=== PATIENT | female | born 1975 | race Caucasian/White ===

== ENCOUNTER → 2021-12-27 | Outpatient (CLI) | payer OTHER, SELFPAY ==
--- NOTE | 2021-12-27 10:17 | BI_ITS ---
MAMMOGRAPHY - BILATERAL SCREENING REASON FOR EXAM: Female, 46 years old. Routine annual screening examination. PERTINENT HISTORY: Grandmother with breast cancer. TECHNIQUE: Digital bilateral breast amena (3D mammographic acquisition) in the CC and MLO projections. 2-D mediolateral oblique (MLO) and craniocaudad (CC) views of both breasts were obtained. CAD: Full Field Digital Mammography with Computer Added Detection was performed. COMPARISON: None. Baseline examination. FINDINGS: Breast Composition: There are scattered areas of fibroglandular density. There are no dominant masses or suspicious calcifications. No other significant abnormalities are identified. BI/SCRN MAMM (CAD)W/AMENA BILAT IMPRESSION: Negative screening mammogram. Yearly followup mammogram recommended. (A) ASSESSMENT CATEGORY: BIRADS Category 1: Negative. A letter regarding these results will be sent to the patient by the facility within 30 days. Approximately 10% of breast cancers are not detected by mammography. A normal mammogram should not delay biopsy of a clinically suspicious abnormality. [id number] Electronically Signed: Alex Houston MD at 11:15 EDT ,
== END | disposition home or self-care (01) ==
PROVIDERS: PCP Family Medicine; Visit Provider Student in an Organized Health Care Education/Training Program
DX: Z12.31 Encounter for screening mammogram for malignant neoplasm of breast (principal)
CPT/HCPCS: 77063; 77067

== ENCOUNTER → 2022-04-27 | Outpatient (CLI) | payer OTHER, SELFPAY ==
[2022-04-27 15:58] LABS: Anion Gap 9 (5-15); BUN 12 mg/dL (7-18); BUN/Creat Ratio 16.8 RATIO (10-20); Calcium,Total 9.5 mg/dL (8.5-10.1); Chloride 103 mmol/L (98-107); Creatinine, Serum 0.71 mg/dL (0.55-1.02); EST Glomerular Filtration Rate 94 mL/min (>60); Est Glom Filt Rate - Afr Amer 114 mL/min (>60); Glucose 80 mg/dL (74-106); Potassium 3.8 mmol/L (3.5-5.1); Sodium Level 137 mmol/L (136-145); Vitamin D,25 Hydroxy 20.5 ng/mL
== END | disposition home or self-care (01) ==
LOC: BFHLAB 13:39
PROVIDERS: PCP Family Medicine; Visit Provider Family Medicine
DX: I10 Essential (primary) hypertension (principal); E55.9 Vitamin D deficiency, unspecified
CPT/HCPCS: 36415; 80048; 82306

== ENCOUNTER → 2023-05-09 | Outpatient (CLI) | payer BC, SELFPAY ==
[2023-05-09 15:22] LABS: Absolute Lymphocyte Count 2.08 X10^3/uL (0.83-4.51); Absolute Neutrophil Count 4.5 X10^3/uL (2.0-7.7); Basophil# 0.07 X10^3/uL; Eosinophil# 0.12 X10^3/uL; Eosinophils% 1.6 % (0-5); Hematocrit 50.5 % (37-47); Hemoglobin 16.5 g/dL (12.0-15.0); Lymphocyte # 2.08 X10^3/ul (0.83-4.51); Lymphocyte % 28.3 % (19-41); Mean Corp Hgb Conc 32.7 g/dL (32-36); Mean Corpuscular Hgb 29.8 pg (27.0-32.0); Mean Corpuscular Volume 91.2 fL (81-99); Mean Platelet Vol. 11.3 fl (6.2-12.0); Monocyte# 0.54 X10^3/uL; Monocyte% 7.3 % (0-10); NRBC Flagged by Analyzer 0 % (0-5); Neutrophil # 4.52 X10^3/uL (2.7-7.7); Neutrophil % 61.5 % (47-70); Platelet Count 276 K/mm3 (150-450); RBC Distribution Width CV 12.1 % (11.6-14.6); RBC Distribution Width SD 40.6 fl (35.1-43.9); Red Blood Count 5.54 M/mm3 (4.2-5.4); White Blood Count 7.4 K/mm3 (4.4-11.0)
[2023-05-09 15:52] LABS: Vitamin D,25 Hydroxy 45.9 ng/mL
[2023-05-09 16:14] LABS: AST(SGOT) 23 U/L (15-37); Alanine Aminotransfer ALT/SGPT 45 U/L (13-56); Albumin, Serum 4.3 g/dL (3.2-5.0); Alkaline Phosphatase 67 U/L (45-117); Anion Gap 9 (5-15); BUN 12 mg/dL (7-18); BUN/Creat Ratio 12.7 RATIO (10-20); Calcium,Total 9.6 mg/dL (8.5-10.1); Chloride 103 mmol/L (98-107); Cholesterol 177 mg/dL (200); Creatinine, Serum 0.94 mg/dL (0.55-1.02); EST Glomerular Filtration Rate 68 mL/min (>60); Est Glom Filt Rate - Afr Amer 82 mL/min (>60); Globulin 4.4 g/dL (2.2-4.2); Glucose 81 mg/dL (74-106); High Density Lipoprotein 59 mg/dL; Potassium 3.9 mmol/L (3.5-5.1); Protein, Total 8.7 g/dL (6.4-8.2); Sodium Level 136 mmol/L (136-145); Triglycerides 75 mg/dL; Very Low Density Lipoprotein 15 mg/dL (5-40)
[2023-05-09 16:35] LABS: Microalbumin,Random Urine < 5.0 mg/L (NO RANGE EST.)
[2023-05-09 20:48] LABS: Hemoglobin A1c 5.1 % (3.8-5.6)
== END | disposition home or self-care (01) ==
LOC: MTLAB 12:38
PROVIDERS: PCP Family Medicine; Referring Provider Family Medicine; Visit Provider Family Medicine
DX: I10 Essential (primary) hypertension (principal); E55.9 Vitamin D deficiency, unspecified
CPT/HCPCS: 36415; 80053; 80061; 82043; 82306; 82570; 83036; 84443; 85025

== ENCOUNTER → 2023-12-23 | Outpatient (CLI) | payer BC, SELFPAY ==
[2023-12-23 12:53] LABS: Absolute Lymphocyte Count 1.77 X10^3/uL (0.83-4.51); Absolute Neutrophil Count 4.5 X10^3/uL (2.0-7.7); Basophil# 0.09 X10^3/uL; Basophil% 1.3 % (0-1); Eosinophils% 1.4 % (0-5); Hematocrit 46.8 % (37-47); Hemoglobin 15.4 g/dL (12.0-15.0); Lymphocyte # 1.77 X10^3/ul (0.83-4.51); Lymphocyte % 25.5 % (19-41); Mean Corp Hgb Conc 32.9 g/dL (32-36); Mean Corpuscular Hgb 29.9 pg (27.0-32.0); Mean Corpuscular Volume 90.9 fL (81-99); Mean Platelet Vol. 11.4 fl (6.2-12.0); Monocyte# 0.45 X10^3/uL; Monocyte% 6.5 % (0-10); NRBC Flagged by Analyzer 0 % (0-5); Neutrophil # 4.51 X10^3/uL (2.7-7.7); Neutrophil % 64.9 % (47-70); Platelet Count 284 K/mm3 (150-450); RBC Distribution Width CV 12.6 % (11.6-14.6); RBC Distribution Width SD 42.2 fl (35.1-43.9); Red Blood Count 5.15 M/mm3 (4.2-5.4)
[2023-12-23 13:41] LABS: Vitamin B12 647 pg/mL (211-911); Vitamin D,25 Hydroxy 28.4 ng/mL
[2023-12-23 15:02] LABS: AST(SGOT) 24 U/L (15-37); Alanine Aminotransfer ALT/SGPT 35 U/L (13-56); Albumin, Serum 3.9 g/dL (3.2-5.0); Alkaline Phosphatase 68 U/L (45-117); Anion Gap 7 (5-15); BUN 8 mg/dL (7-18); BUN/Creat Ratio 10.2 RATIO (10-20); Calcium,Total 9.1 mg/dL (8.5-10.1); Chloride 104 mmol/L (98-107); Cholesterol 173 mg/dL (200); Creatinine, Serum 0.79 mg/dL (0.55-1.02); EST Glomerular Filtration Rate 83 mL/min (>60); Est Glom Filt Rate - Afr Amer 101 mL/min (>60); Globulin 3.8 g/dL (2.2-4.2); Glucose 71 mg/dL (74-106); High Density Lipoprotein 60 mg/dL; Potassium 3.9 mmol/L (3.5-5.1); Protein, Total 7.7 g/dL (6.4-8.2); Sodium Level 138 mmol/L (136-145); T4 Free Direct 1.13 ng/dL (0.76-1.46); Triglycerides 60 mg/dL; Very Low Density Lipoprotein 12 mg/dL (5-40)
== END | disposition home or self-care (01) ==
LOC: BFHLAB 11:10
PROVIDERS: PCP Nurse Practitioner Family; Referring Provider Nurse Practitioner Family; Visit Provider Nurse Practitioner Family
DX: Z00.01 Encounter for general adult medical examination with abnormal findings (principal); I10 Essential (primary) hypertension; E55.9 Vitamin D deficiency, unspecified; Z83.49 Family history of other endocrine, nutritional and metabolic diseases; E53.8 Deficiency of other specified B group vitamins
CPT/HCPCS: 36415; 80053; 80061; 82306; 82607; 84439; 84443; 85025

== ENCOUNTER → 2024-06-29 | Outpatient (CLI) | payer BC, SELFPAY | END | disposition home or self-care (01) | LOC: BFHLAB 15:14 | PROVIDERS: PCP Nurse Practitioner Family; Referring Provider Nurse Practitioner Family; Visit Provider Nurse Practitioner Family | DX: N39.0 Urinary tract infection, site not specified (principal) | CPT/HCPCS: 87086; 87088; 87186 ==

== ENCOUNTER → 2024-08-20 | Outpatient (CLI) | payer BC, SELFPAY ==
[2024-08-20 18:34] LABS: Absolute Lymphocyte Count 1.71 X10^3/uL (0.83-4.51); Absolute Neutrophil Count 4.3 X10^3/uL (2.0-7.7); Basophil# 0.08 X10^3/uL; Basophil% 1.2 % (0-1); Eosinophil# 0.05 X10^3/uL; Eosinophils% 0.8 % (0-5); Hematocrit 44.2 % (37-47); Lymphocyte # 1.71 X10^3/ul (0.83-4.51); Lymphocyte % 26.1 % (19-41); Mean Corp Hgb Conc 33.9 g/dL (32-36); Mean Corpuscular Hgb 30.5 pg (27.0-32.0); Mean Corpuscular Volume 89.8 fL (81-99); Mean Platelet Vol. 11.1 fl (6.2-12.0); Monocyte# 0.41 X10^3/uL; Monocyte% 6.3 % (0-10); NRBC Flagged by Analyzer 0 % (0-5); Neutrophil # 4.27 X10^3/uL (2.7-7.7); Neutrophil % 65.3 % (47-70); Platelet Count 290 K/mm3 (150-450); RBC Distribution Width CV 12.7 % (11.6-14.6); RBC Distribution Width SD 41.8 fl (35.1-43.9); Red Blood Count 4.92 M/mm3 (4.2-5.4); White Blood Count 6.5 K/mm3 (4.4-11.0)
[2024-08-20 18:46] LABS: ALB/GLOB Ratio 1.2 RATIO (0.9-2.4); AST(SGOT) 21 U/L (15-37); Alanine Aminotransfer ALT/SGPT 30 U/L (13-56); Albumin, Serum 4.3 g/dL (3.2-5.0); Alkaline Phosphatase 58 U/L (45-117); Anion Gap 9 (5-15); BUN 13 mg/dL (7-18); BUN/Creat Ratio 15.2 RATIO (10-20); Calcium,Total 9.5 mg/dL (8.5-10.1); Chloride 103 mmol/L (98-107); Creatinine, Serum 0.86 mg/dL (0.55-1.02); EST Glomerular Filtration Rate 75 mL/min (>60); Est Glom Filt Rate - Afr Amer 91 mL/min (>60); Globulin 3.7 g/dL (2.2-4.2); Glucose 89 mg/dL (74-106); Lipase 44 U/L (13-75); Potassium 4.1 mmol/L (3.5-5.1); Sodium Level 136 mmol/L (136-145)
== END | disposition home or self-care (01) ==
LOC: BFHLAB 14:29
PROVIDERS: PCP Nurse Practitioner Family; Visit Provider Family Medicine
DX: R10.12 Left upper quadrant pain (principal)
CPT/HCPCS: 36415; 80053; 83690; 85025

== ENCOUNTER → 2025-01-05 | Outpatient (CLI) | payer BC, SELFPAY ==
[2025-01-05 14:35] LABS: AST(SGOT) 22 U/L (<=31); Alanine Aminotransfer ALT/SGPT 18 U/L (<=34); Albumin, Serum 4.2 g/dL (3.5-5.0); Alkaline Phosphatase 61 U/L (35-104); Bilirubin, Direct 0.21 mg/dL (0.00-0.30); Globulin 2.8 g/dL (2.2-4.2); Total Bilirubin 0.51 mg/dL (0.00-1.30); Vitamin D,25 Hydroxy 36.1 ng/mL (30-100)
--- OUTSIDE RECORDS SUMMARY | 2025-01-05 21:34 | XMS RPT_ITS | CCD ---
Author Organization [facility] Care Team Providers Care Renewals Representative Name Role Phone Ras Heller Unavailable Unavailable Ras Heller Unavailable Unavailable Hasmukh Rousseau Unavailable Unavailable Hasmukh Rousseau Primary Care Provider [phone] HASMUKH ROUSSEAU Primary Care Unavailable CHRISTIANO VERONICA Attending Unavail able JULIO SORIANO Attending Unavailable HASMUKH ROUSSEAU Primary Care Unavailable JULIO SORIANO Admitting Unavailable JULIO SORIANO Referring Unavailable HASMUKH ROUSSEAU Primary Care Unavailable Hasmukh Rousseau Primary Care Provider [phone] Dr. Hasmukh Rousseau Primary Care Provider [phone] Dr. Hasmukh Rousseau Referring Provider [phone] Yane Rahman Attending Provider [phone] Maranda Augustine DO Primary Care Provider GUI CHAPMAN Attending Unavailable MARANDA AUGUSTINE Primary Care Unavailable Chevy, Elvira Primary Care Unavailable Chevy, Elvira Attending Unavailable Chevy, Elvira Referring Unavailable Chevy, Elvira Primary Care Unavailable Chevy Elvira Attending Unavailable Chevy, Elvira Referring Unavailable Wilda Payan Attending Unavailable Chevy, Elvira Primary Care Unavailable [facility] Other Unavailable [phone] Wilda Payan MD Primary Care Provider [phone] HASMUKH ROUSSEAU Primary Care Unavailable WILDA PAYAN Referring Unavailable WILDA PAYAN Attending Unavailable ACOSTA DEAN Referring Unavailable ACOSTA DEAN Attending Unavailable WILDA PAYAN Primary Care Unavailable JOY PENG Attending Unavailable HASMUKH ROUSSEAU Primary Care Unavailable Medications Current Medications Medication Drug Class(es) Dates Sig (Normalized) Sig (Original) levonorgestrel 0.184663 mg/hr intrauterine system (4 sources) Progestin, Progestin-containi ng Intrauterine Device Start: 11-19-2021 End: 11-19-2021 Levonorgestrel 20.1 MCG/DAY IUD 1 Intra Uterine Device by Intrauterine route once. 11/19/2021 Active levonorgestreL ( MIRENA) 20 mcg/24 hours (6 yrs) 52 mg IUD 1 each by Intrauterine route once . 0 Active lisinopril 20 mg oral tablet (7 sources) Angiotensin Converting Enzyme Inhibitor Start: 02-08-2022 Lisinopril Active TA B PO February 08, 2022 12:00am Start: 08-04-2019 take 1 tablet by sepideh th once daily lisinopril (PRINIVIL,ZESTRIL) 20 MG tablet Take 20 mg by mouth daily . 0 08/04/2019 Active lisinopril 10 MG tablet Indications: Hypertension Take by mouth daily. 0 Active Semaglutide-Weight Management (Wegovy) 1.7 MG/0.75ML solution auto-injector (2 sources) Semaglutide-Weig ht Management (Wegovy) 1.7 MG/0.75ML solution auto-injector Inject 1.7 mg under the skin every 7 days. 0 Active Zepbound 12.5 MG/0.5ML Solution Auto-injector (1 source) Start: 4 inject 12.5 mg by intramuscular injection every week Zepbound 12.5 MG/0.5ML Solution Auto-injector Inject 12.5 mg intramuscularly once a week. 07/22/2023 Active Completed/Discontinued Medications Medication Drug Class(es) Dates Sig (Normalized) Sig (Original) cephalexin 500 mg oral capsule (2 sources) Cephalosporin Antibacterial Start: 06-26-2020 End: 07-03-2020 cephALEXin (KEFLEX) capsule 500 mg sodium chloride 0.154 meq/ml irrigation solution (1 source) Start: 06-26-2020 End: 06-26-2020 sodium chloride (NS) 0.9 % irrigation solution - ADS Override Pull Problems Active Problems Problem Classification Problem Date Documented Da te Episodic/Chronic Abdominal pain (3 sources) Left upper quadrant pain; Translations: [Left upper quadrant pain] Onset: 09-07-2024 Episodic Calculus of urinary tract (1 source) Kidney stone; Translations: [Calculus of kidney] 09-15-2024 Episodic Essential hypertension (9 sources) Hypertensive disorder; Translations: [Essential (primary) hypertension] Onset: 03-25-2014 03-25-2014 Chronic Open wounds of extremities (2 sources) Laceration of index finger; Translations: [Laceration of right index finger without damage to nail, foreign body presence unspecified, initial encounter] Episodic Other and unspecified benign neoplasm (2 sources) Lipoma of thigh; Translations: [Benign lipomatous neoplasm of skin and subcutaneous tissue of left leg] 02-15-2022 Episodic Other and unspecified benign neoplasm (3 sources) Benign lipomatous neoplasm of skin and subcutaneous tissue of left leg; Translations: [Lipoma of other specified sites] Episodic Other diseases of kidney and ureters (2 sources) Cyst of kidney; Translations: [Cyst of kidney, acquired] 09-15-2024 Episodic Other injuries and conditions due to external causes (1 source) Swallowed foreign body; Translations: [Ingestion of foreign body, initial encounter] Episodic Other nutritional; endocrine; and metabolic disorders (2 sources) Obesity; Translations: [Obesity, unspecified] 05-27-2023 Chronic Other nutritional; endocrine; and metabolic disorders (2 sources) Morbid obesity; Translations: [Morbid (severe) obesity due to excess calories] Onset: 04-19-2023 04-19-2023 Chronic Other nutritional; endocrine; and metabolic disorders (2 sources) Obesity, unspecified; Translations: [Obesity, unspecified] Onset: 05-27-2023 Chronic Residual codes; unclassified (3 sources) Sleep apnea; Translations: [Sleep apnea] Onset: 03-25-2014 03-25-2014 Chronic Urinary tract infections (1 source) Urinary tract infection, site not specified; Translations: [Urinary tract infection, site not specified] Onset: 07-30-2024 Episodic Past or Other Problems Problem Classification Problem Date Documented Da te Episodic/Chronic Mycoses (3 sources) Onychomycosis; Translations: [Onychomycosis] Onset: 03-25-2014 03-25-2014 Episodic Results Test Name Value Interpretation Reference Range Facility POCT URINALYSIS DIPSTICK AUT OMATED W/O SCOPon 09-15-2024 Amorphous sediment LM Ql (Urine sed) [facility] Appearance (U) clear [facility] Bacteria LM Ql (Urine sed) [facility] Bilirubin Ql (U) Negative [facility] Casts LM.LPF (Urine sed) [#/Area] [facility] Color (U) yellow [facility] Crystals LM Nom (Urine sed) [facility] Epithelial cells.squamous LM.HPF (Urine sed) [#/Area] [facility] Flow cytometry specialist review Chente (Unsp spec) [Interp] [facility] Glucose Auto test strip (U) [Mass/Vol] Negative mg/dL [facility] Interpretation and review of laboratory results Abnormal [facility] Ketones [Mass/Vol] Negative mg/dL [facility] Leukocyte esterase Qn (U) [facility] Leukocyte esterase Test strip Ql (U) Negative [facility] Nitrite Ql (U) Negative [facility] pH (U) 7 [pH] 5 - 7 [facility] Protein Ql (U) 30 mg/dL [facility] RBC LM.HPF (Urine sed) [#/Area] [facility] RBC Ql (U) Negative [facility] Specific gravity (U) [Rel density] 1.025 1.001 - 1.035 [facility] Transitional cells LM Ql (Urine sed) [facility] Urobilinogen Qn (U) 0.2 [facility] WBC LM.HPF (Urine sed) [#/Area] [facility] CT ABDOMEN PELVIS WITHOUT CO NTRASTon 09-09-2024 CT ABDOMEN PELVIS WITHOUT CONTRAST EXAMINATION: CT ABDOMEN AND PELVIS WITHOUT CONTRAST HISTORY: ORDERING SYSTEM PROVIDED HISTORY: Left upper quadrant pain, TECHNOLOGIST PROVIDED HISTORY: Illness/Other Reason for exam: Left upper quadrant pain Encounter Type: Initial Additional signs and symptoms: none ORDERING SYSTEM PROVIDED DIAGNOSIS CODES: R10.12 Left upper quadrant pain COMPARISON: None. TECHNIQUE: CT examination of the abdomen and pelvis without IV contrast. Coronal and sagittal reformations were performed. Dose reduction techniques were achieved by using automated exposure control and/or adjustment of mA and/or kV according to patient size and/or use of iterative reconstruction technique. FINDINGS: The visualized portions of the lung bases and heart are unremarkable. The liver is normal size. No focal lesion identified on this noncontrast study. Gallbladder is nondistended. No calcified stones. The spleen, pancreas, and adrenal glands are within normal limits. The kidneys demonstrate no hydronephrosis. A 4 mm calculus projects in the lower pole of the right kidney. Additional punctate calcification noted in the upper right kidney. There is homogeneous exophytic 2.5 cm lesion in the upper pole of the left kidney compatible with a cyst. No enlarged retroperitoneal lymphadenopathy. Aorta and IVC are normal caliber. The small bowel caliber is within normal limits. Appendix is noninflamed. The colon is nondistended. No evidence of free intraperitoneal air or fluid. The bladder is mostly decompressed. IUD in the central uterus with somewhat tilted positioning. No acute osseous abnormalities. IMPRESSION: No acute CT abnormality noted within the abdomen or pelvis. Nonobstructing right nephrolithiasis. Suspected left renal cyst. [facility] Workstation ID: [id number] Dictated by: FLOR POSEY on SatSep 10, 2024 8:13:46 AM EST Transcribed by: KATE STRAUSS on SatSep 10, 2024 8:23:51 AM EST Finalized by: FLOR POSEY on SatSep 10, 2024 8:49:52 AM EST Normal [facility] Comment on above: Order Comment: Pt/fa x Auth- [id number] Injury/Trauma or Illness?:Illness/Other How long have you had these symptoms (acute/chronic)?:Acute Reason for exam?:Left upper quadrant pain Type of Exam?:Initial Additional signs and symptoms?:none CBC W/Diff, Automatedon 07-24 Absolute Lymph 1.71 X10 3/uL Normal 0.83-4.51 [facility] Comment on above: Performed By: #### L 100.0100, L500.4050, L501.2450 #### [facility] [address] [place], [address] Absolute Neut 4.3 X10 3/uL Normal 2.0-7.7 [facility] Comment on above: Performed By: #### L 100.0100, L500.4050, L501.2450 #### [facility] [address] [place], [address] Basophils/100 WBC (Bld) 1.2 % High 0-1 [facility] Comment on above: Performed By: #### L 100.0100, L500.4050, L501.2450 #### [facility] [address] [place], [address] Eosinophils/100 WBC (Bld) 0.8 % Normal 0-5 [facility] Comment on above: Performed By: #### L 100.0100, L500.4050, L501.2450 #### [facility] [address] [place], [address] Erythrocyte distribution width (RBC) [Ratio] 12.7 % Normal 11.6-14.6 [facility] Comment on above: Performed By: #### L 100.0100, L500.4050, L501.2450 #### [facility] [address] [place], [address] Hematocrit (Bld) [Volume fraction] 44.2 % Normal 37-47 [facility] Comment on above: Performed By: #### L 100.0100, L500.4050, L501.2450 #### [facility] [address] [place], [address] Hemoglobin (Bld) [Mass/Vol] 15.0 g/dL Normal 12.0-15.0 [facility] Comment on above: Performed By: #### L 100.0100, L500.4050, L501.2450 #### [facility] [address] [place], [address] IG% 0.300 Normal 0.0-0.9 [facility] Comment on above: Result Comment: IG% - Immature Granulocytes (promyelocytes, myelocytes and metamyelocytes) > 1% indicates that a LEFT SHIFT is Present. Performed By: #### L 100.0100, L500.4050, L501.2450 #### [facility] [address] [place], [address] Lymphocytes/100 WBC (Bld) 26.1 % Normal 19-41 [facility] Comment on above: Performed By: #### L 100.0100, L500.4050, L501.2450 #### [facility] [address] [place], [address] MCH (RBC) [Entitic mass] 30.5 pg Normal 27.0-32.0 [facility] Comment on above: Performed By: #### L 100.0100, L500.4050, L501.2450 #### [facility] [address] [place], [address] MCHC (RBC) [Mass/Vol] 33.9 g/dL Normal 32-36 [facility] Comment on above: Performed By: #### L 100.0100, L500.4050, L501.2450 #### [facility] [address] [place], [address] MCV (RBC) [Entitic vol] 89.8 fL Normal 81-99 [facility] Comment on above: Performed By: #### L 100.0100, L500.4050, L501.2450 #### [facility] [address] [place], [address] Monocytes/100 WBC (Bld) 6.3 % Normal 0-10 [facility] Comment on above: Performed By: #### L 100.0100, L500.4050, L501.2450 #### [facility] [address] [place], [address] Neutrophils/100 WBC (Bld) 65.3 % Normal 47-70 [facility] Comment on above: Performed By: #### L 100.0100, L500.4050, L501.2450 #### [facility] [address] [place], [address] Nucleated RBC (Bld) [#/Vol] 0 10*3/uL Normal 0-5 [facility] Comment on above: Performed By: #### L 100.0100, L500.4050, L501.2450 #### [facility] [address] [place], [address] Platelet mean volume (Bld) [Entitic vol] 11.1 fL Normal 6.2-12.0 [facility] Comment on above: Performed By: #### L 100.0100, L500.4050, L501.2450 #### [facility] [address] [place], [address] Platelets (Bld) [#/Vol] 290 10*3/uL Normal 150-450 [facility] Comment on above: Performed By: #### L 100.0100, L500.4050, L501.2450 #### [facility] [address] [place], [address] RBC (Bld) [#/Vol] 4.92 10*6/uL Normal 4.2-5.4 [facility] Comment on above: Performed By: #### L 100.0100, L500.4050, L501.2450 #### [facility] [address] [place], [address] RDW SD 41.8 fl Normal 35.1-43.9 [facility] Comment on above: Performed By: #### L 100.0100, L500.4050, L501.2450 #### [facility] [address] [place], [address] WBC (Bld) [#/Vol] 6.5 10*3/uL Normal 4.4-11.0 [facility] Comment on above: Performed By: #### L 100.0100, L500.4050, L501.2450 #### [facility] [address] [place], [address] Comprehensive Metabolic Prof ilon 08-20-2024 Albumin [Mass/Vol] 4.3 g/dL Normal 3.2-5.0 [facility] Comment on above: Performed By: #### L 100.0100, L500.4050, L501.2450 #### [facility] [address] [place], [address] Albumin/Globulin [Mass ratio] 1.2 {ratio} Normal 0.9-2.4 [facility] Comment on above: Performed By: #### L 100.0100, L500.4050, L501.2450 #### [facility] [address] [place], [address] ALK P 58 U/L Normal 45-117 [facility] Comment on above: Performed By: #### L 100.0100, L500.4050, L501.2450 #### [facility] [address] [place], [address] ALT [Catalytic activity/Vol] 30 U/L Normal 13-56 [facility] Comment on above: Performed By: #### L 100.0100, L500.4050, L501.2450 #### [facility] [address] [place], [address] AST [Catalytic activity/Vol] 21 U/L Normal 15-37 [facility] Comment on above: Performed By: #### L 100.0100, L500.4050, L501.2450 #### [facility] [address] [place], [address] Bilirubin [Mass/Vol] 0.80 mg/dL Normal 0.20-1.00 [facility] Comment on above: Result Comment: For patients on eltrombopag therapy, use of Dimension [place] TBIL is not recommended. Performed By: #### L 100.0100, L500.4050, L501.2450 #### [facility] [address] [place], [address] BUN/CRE 15.2 RATIO Normal 10-20 [facility] Comment on above: Performed By: #### L 100.0100, L500.4050, L501.2450 #### [facility] [address] [place], [address] CA,Total 9.5 mg/dL Normal 8.5-10.1 [facility] Comment on above: Performed By: #### L 100.0100, L500.4050, L501.2450 #### [facility] [address] [place], [address] Chloride [Moles/Vol] 103 mmol/L Normal 98-107 [facility] Comment on above: Performed By: #### L 100.0100, L500.4050, L501.2450 #### [facility] [address] [place], [address] CO2 [Moles/Vol] 24.0 mmol/L Normal 21.0-32.0 [facility] Comment on above: Performed By: #### L 100.0100, L500.4050, L501.2450 #### [facility] [address] [place], [address] Creatinine [Mass/Vol] 0.86 mg/dL Normal 0.55-1.02 [facility] Comment on above: Result Comment: The validity of the calculated GFR GFRAA in patients over 70 years has not been determined. Clinical correlation is essential. Performed By: #### L 100.0100, L500.4050, L501.2450 #### [facility] [address], [address] EST GFR - AA 91 mL/min Normal >60 [facility] Comment on above: Result Comment: Afri can [place] GFR Calc Performed By: #### L 100.0100, L500.4050, L501.2450 #### [facility] [address] [place], [address] GAP 9 Normal 5-15 [facility] Comment on above: Performed By: #### L 100.0100, L500.4050, L501.2450 #### [facility] [address] [place], [address] GFR/1.73 sq M.predicted among non-blacks MDRD (S/P/Bld) [Vol rate/Area] 75 mL/min/{1.73_m2} Normal >60 [facility] Comment on above: Result Comment: Non- GFR Calc Performed By: #### L 100.0100, L500.4050, L501.2450 #### [facility] [address] [place], [address] Globulin (S) [Mass/Vol] 3.7 g/dL Normal 2.2-4.2 [facility] Comment on above: Performed By: #### L 100.0100, L500.4050, L501.2450 #### [facility] [address], [address] Glucose [Mass/Vol] 89 mg/dL Normal 74-106 [facility] Comment on above: Performed By: #### L 100.0100, L500.4050, L501.2450 #### [facility] [address] [place], [address] Potassium [Moles/Vol] 4.1 mmol/L Normal 3.5-5.1 [facility] Comment on above: Performed By: #### L 100.0100, L500.4050, L501.2450 #### [facility] [address] [place], [address] Sodium [Moles/Vol] 136 mmol/L Normal 136-145 [facility] Comment on above: Performed By: #### L 100.0100, L500.4050, L501.2450 #### [facility] [address] [place], [address] T PROT 8.0 g/dL Normal 6.4-8.2 [facility] Comment on above: Performed By: #### L 100.0100, L500.4050, L501.2450 #### [facility] [address] [place], [address] Urea nitrogen [Mass/Vol] 13 mg/dL Normal 7-18 [facility] Comment on above: Performed By: #### L 100.0100, L500.4050, L501.2450 #### [facility] [address] [place], [address] Lipaseon 08-20-2024 Lipase [Catalytic activity/Vol] 44 U/L Normal 13-75 [facility] Comment on above: Result Comment: Hugh mccullough note: LIPASE revised reference range effective 22. New Lipase methodology. Expected to produce lower values than the previous assay method. NEW Reference Range: 13 - 75 U/L Performed By: #### L 100.0100, L500.4050, L501.2450 #### [facility] [address] [place], [address] Urine Cultureon 07-01-2024 [facility] Presumptive E. coli Inez Count 25,000-50,000 Presumptive E. coli: REACTION Ampicillin Islt LEANDRA 4 Ampicillin+Sulbac Islt LEANDRA <=2 S Cefepime Islt LEANDRA <=0.12 S cefTRIAXone Islt LEANDRA <=0.25 S Ciprofloxacin Islt LEANDRA <=0.06 S B-Lactamase Extended Susc Islt NEG Gentamicin Islt LEANDRA <=1 S levoFLOXacin Islt LEANDRA <=0.12 S Meropenem Islt LEANDRA <=0.25 S Nitrofurantoin Islt LEANDRA <=16 S Pip+Tazo Islt LEANDRA <=4 S TMP SMX Islt LEANDRA <=20 S Normal [facility] Comment on above: Performed By: #### M 100.2200 #### [facility] [address] [place], [address] CBC W/Diff, Automatedon 06-0 3-4 Absolute Lymph 1.77 X10 3/uL Normal 0.83-4.51 [facility] Comment on above: Performed By: #### L 501.9520, L506.1000, L100.0100, L500.4050, L506.0400, L500.4100, L503.0105 #### [facility] [address] [place], [address] Absolute Neut 4.5 X10 3/uL Normal 2.0-7.7 [facility] Comment on above: Performed By: #### L 501.9520, L506.1000, L100.0100, L500.4050, L506.0400, L500.4100, L503.0105 #### [facility] [address] [place], [address] Basophils/100 WBC (Bld) 1.3 % High 0-1 [facility] Comment on above: Performed By: #### L 501.9520, L506.1000, L100.0100, L500.4050, L506.0400, L500.4100, L503.0105 #### [facility] [address] [place], [address] Eosinophils/100 WBC (Bld) 1.4 % Normal 0-5 [facility] Comment on above: Performed By: #### L 501.9520, L506.1000, L100.0100, L500.4050, L506.0400, L500.4100, L503.0105 #### [facility] [address] [place], [address] Erythrocyte distribution width (RBC) [Ratio] 12.6 % Normal 11.6-14.6 [facility] Comment on above: Performed By: #### L 501.9520, L506.1000, L100.0100, L500.4050, L506.0400, L500.4100, L503.0105 #### [facility] [address] [place], [address] Hematocrit (Bld) [Volume fraction] 46.8 % Normal 37-47 [facility] Comment on above: Performed By: #### L 501.9520, L506.1000, L100.0100, L500.4050, L506.0400, L500.4100, L503.0105 #### [facility] [address] [place], [address] Hemoglobin (Bld) [Mass/Vol] 15.4 g/dL High 12.0-15.0 [facility] Comment on above: Performed By: #### L 501.9520, L506.1000, L100.0100, L500.4050, L506.0400, L500.4100, L503.0105 #### [facility] [address] [place], [address] IG% 0.400 Normal 0.0-0.9 [facility] Comment on above: Result Comment: IG% - Immature Granulocytes (promyelocytes, myelocytes and metamyelocytes) > 1% indicates that a LEFT SHIFT is Present. Performed By: #### L 501.9520, L506.1000, L100.0100, L500.4050, L506.0400, L500.4100, L503.0105 #### [facility] [address] [place], [address] Lymphocytes/100 WBC (Bld) 25.5 % Normal 19-41 [facility] Comment on above: Performed By: #### L 501.9520, L506.1000, L100.0100, L500.4050, L506.0400, L500.4100, L503.0105 #### [facility] [address] [place], [address] MCH (RBC) [Entitic mass] 29.9 pg Normal 27.0-32.0 [facility] Comment on above: Performed By: #### L 501.9520, L506.1000, L100.0100, L500.4050, L506.0400, L500.4100, L503.0105 #### [facility] [address] [place], [address] MCHC (RBC) [Mass/Vol] 32.9 g/dL Normal 32-36 [facility] Comment on above: Performed By: #### L 501.9520, L506.1000, L100.0100, L500.4050, L506.0400, L500.4100, L503.0105 #### [facility] [address] [place], [address] MCV (RBC) [Entitic vol] 90.9 fL Normal 81-99 [facility] Comment on above: Performed By: #### L 501.9520, L506.1000, L100.0100, L500.4050, L506.0400, L500.4100, L503.0105 #### [facility] [address] [place], [address] Monocytes/100 WBC (Bld) 6.5 % Normal 0-10 [facility] Comment on above: Performed By: #### L 501.9520, L506.1000, L100.0100, L500.4050, L506.0400, L500.4100, L503.0105 #### [facility] [address] [place], [address] Neutrophils/100 WBC (Bld) 64.9 % Normal 47-70 [facility] Comment on above: Performed By: #### L 501.9520, L506.1000, L100.0100, L500.4050, L506.0400, L500.4100, L503.0105 #### [facility] [address] [place], [address] Nucleated RBC (Bld) [#/Vol] 0 10*3/uL Normal 0-5 [facility] Comment on above: Performed By: #### L 501.9520, L506.1000, L100.0100, L500.4050, L506.0400, L500.4100, L503.0105 #### [facility] [address] [place], [address] Platelet mean volume (Bld) [Entitic vol] 11.4 fL Normal 6.2-12.0 [facility] Comment on above: Performed By: #### L 501.9520, L506.1000, L100.0100, L500.4050, L506.0400, L500.4100, L503.0105 #### [facility] [address] [place], [address] Platelets (Bld) [#/Vol] 284 10*3/uL Normal 150-450 [facility] Comment on above: Performed By: #### L 501.9520, L506.1000, L100.0100, L500.4050, L506.0400, L500.4100, L503.0105 #### [facility] [address] [place], [address] RBC (Bld) [#/Vol] 5.15 10*6/uL Normal 4.2-5.4 [facility] Comment on above: Performed By: #### L 501.9520, L506.1000, L100.0100, L500.4050, L506.0400, L500.4100, L503.0105 #### [facility] [address] [place], [address] RDW SD 42.2 fl Normal 35.1-43.9 [facility] Comment on above: Performed By: #### L 501.9520, L506.1000, L100.0100, L500.4050, L506.0400, L500.4100, L503.0105 #### [facility] [address] [place], [address] WBC (Bld) [#/Vol] 7.0 10*3/uL Normal 4.4-11.0 [facility] Comment on above: Performed By: #### L 501.9520, L506.1000, L100.0100, L500.4050, L506.0400, L500.4100, L503.0105 #### [facility] [address] [place], [address] Comprehensive Metabolic Prof ilon 12-23-2023 Albumin [Mass/Vol] 3.9 g/dL Normal 3.2-5.0 [facility] Comment on above: Performed By: #### L 501.9520, L506.1000, L100.0100, L500.4050, L506.0400, L500.4100, L503.0105 #### [facility] [address] [place], [address] Albumin/Globulin [Mass ratio] 1.0 {ratio} Normal 0.9-2.4 [facility] Comment on above: Performed By: #### L 501.9520, L506.1000, L100.0100, L500.4050, L506.0400, L500.4100, L503.0105 #### [facility] [address] [place], [address] ALK P 68 U/L Normal 45-117 [facility] Comment on above: Performed By: #### L 501.9520, L506.1000, L100.0100, L500.4050, L506.0400, L500.4100, L503.0105 #### [facility] [address] [place], [address] ALT [Catalytic activity/Vol] 35 U/L Normal 13-56 [facility] Comment on above: Performed By: #### L 501.9520, L506.1000, L100.0100, L500.4050, L506.0400, L500.4100, L503.0105 #### [facility] [address] [place], [address] AST [Catalytic activity/Vol] 24 U/L Normal 15-37 [facility] Comment on above: Performed By: #### L 501.9520, L506.1000, L100.0100, L500.4050, L506.0400, L500.4100, L503.0105 #### [facility] [address] [place], [address] Bilirubin [Mass/Vol] 0.60 mg/dL Normal 0.20-1.00 [facility] Comment on above: Result Comment: For patients on eltrombopag therapy, use of Dimension [place] TBIL is not recommended. Performed By: #### L 501.9520, L506.1000, L100.0100, L500.4050, L506.0400, L500.4100, L503.0105 #### [facility] [address] [place], [address] BUN/CRE 10.2 RATIO Normal 10-20 [facility] Comment on above: Performed By: #### L 501.9520, L506.1000, L100.0100, L500.4050, L506.0400, L500.4100, L503.0105 #### [facility] [address] [place], [address] CA,Total 9.1 mg/dL Normal 8.5-10.1 [facility] Comment on above: Performed By: #### L 501.9520, L506.1000, L100.0100, L500.4050, L506.0400, L500.4100, L503.0105 #### [facility] [address] [place], [address] Chloride [Moles/Vol] 104 mmol/L Normal 98-107 [facility] Comment on above: Performed By: #### L 501.9520, L506.1000, L100.0100, L500.4050, L506.0400, L500.4100, L503.0105 #### [facility] [address] [place], [address] CO2 [Moles/Vol] 27.0 mmol/L Normal 21.0-32.0 [facility] Comment on above: Performed By: #### L 501.9520, L506.1000, L100.0100, L500.4050, L506.0400, L500.4100, L503.0105 #### [facility] [address] [place], [address] Creatinine [Mass/Vol] 0.79 mg/dL Normal 0.55-1.02 [facility] Comment on above: Result Comment: The validity of the calculated GFR GFRAA in patients over 70 years has not been determined. Clinical correlation is essential. Performed By: #### L 501.9520, L506.1000, L100.0100, L500.4050, L506.0400, L500.4100, L503.0105 #### [facility] [address] [place], [address] EST GFR - AA 101 mL/min Normal >60 [facility] Comment on above: Result Comment: Afri can Guamanian GFR Calc Performed By: #### L 501.9520, L506.1000, L100.0100, L500.4050, L506.0400, L500.4100, L503.0105 #### [facility] [address] [place], [address] GAP 7 Normal 5-15 [facility] Comment on above: Performed By: #### L 501.9520, L506.1000, L100.0100, L500.4050, L506.0400, L500.4100, L503.0105 #### [facility] [address] [place], [address] GFR/1.73 sq M.predicted among non-blacks MDRD (S/P/Bld) [Vol rate/Area] 83 mL/min/{1.73_m2} Normal >60 [facility] Comment on above: Result Comment: Non- GFR Calc Performed By: #### L 501.9520, L506.1000, L100.0100, L500.4050, L506.0400, L500.4100, L503.0105 #### [facility] [address] [place], [address] Globulin (S) [Mass/Vol] 3.8 g/dL Normal 2.2-4.2 [facility] Comment on above: Performed By: #### L 501.9520, L506.1000, L100.0100, L500.4050, L506.0400, L500.4100, L503.0105 #### [facility] [address] [place], [address] Glucose [Mass/Vol] 71 mg/dL Low 74-106 [facility] Comment on above: Performed By: #### L 501.9520, L506.1000, L100.0100, L500.4050, L506.0400, L500.4100, L503.0105 #### [facility] [address] [place], [address] Potassium [Moles/Vol] 3.9 mmol/L Normal 3.5-5.1 [facility] Comment on above: Performed By: #### L 501.9520, L506.1000, L100.0100, L500.4050, L506.0400, L500.4100, L503.0105 #### [facility] [address] [place], [address] Sodium [Moles/Vol] 138 mmol/L Normal 136-145 [facility] Comment on above: Performed By: #### L 501.9520, L506.1000, L100.0100, L500.4050, L506.0400, L500.4100, L503.0105 #### [facility] [address] [place], [address] T PROT 7.7 g/dL Normal 6.4-8.2 [facility] Comment on above: Performed By: #### L 501.9520, L506.1000, L100.0100, L500.4050, L506.0400, L500.4100, L503.0105 #### [facility] [address] [place], [address] Urea nitrogen [Mass/Vol] 8 mg/dL Normal 7-18 [facility] Comment on above: Performed By: #### L 501.9520, L506.1000, L100.0100, L500.4050, L506.0400, L500.4100, L503.0105 #### [facility] [address] [place], [address] Lipid Profileon 12-23-2023 Cholesterol [Mass/Vol] 173 mg/dL Normal 200 [facility] Comment on above: Result Comment: <200 mg/dL Desirable 200-240 mg/dL Borderline >240 mg/dL High Risk Performed By: #### L 501.9520, L506.1000, L100.0100, L500.4050, L506.0400, L500.4100, L503.0105 #### [facility] [address] [place], [address] Cholesterol in HDL [Mass/Vol] 60 mg/dL Normal [facility] Comment on above: Result Comment: The drugs N-Acetylcysteine and Metamizole may falsely depress this assay. Reference Range HDL <40 mg/dL Low HDL Cholesterol HDL >or= 60 mg/dL High HDL Cholesterol Performed By: #### L 501.9520, L506.1000, L100.0100, L500.4050, L506.0400, L500.4100, L503.0105 #### [facility] [address] [place], [address] Cholesterol in LDL [Mass/Vol] 101 mg/dL Normal 0-130 [facility] Comment on above: Performed By: #### L 501.9520, L506.1000, L100.0100, L500.4050, L506.0400, L500.4100, L503.0105 #### [facility] [address] [place], [place], [address] ([address] Cholesterol in VLDL [Mass/Vol] 12 mg/dL Normal 5-40 [facility] Comment on above: Performed By: #### L 501.9520, L506.1000, L100.0100, L500.4050, L506.0400, L500.4100, L503.0105 #### [facility] [address] [place], [place], [id number] ([address] Triglyceride [Mass/Vol] 60 mg/dL Normal [facility] Comment on above: Result Comment: The drugs N-Acetylcysteine and Metamizole may falsely depress this assay. Serum Triglycerides Reference Interval Normal <150 mg/dL Borderline high 150 - 199 mg/dL High 200 - 499 mg/dL Very High > or = 500 mg/dL Performed By: #### L 501.9520, L506.1000, L100.0100, L500.4050, L506.0400, L500.4100, L503.0105 #### [facility] [address] [place], [address] T4 Free Directon 12-23-2023 T4 FREE DIRECT 1.13 ng/dL Normal 0.76-1.46 [facility] Comment on above: Performed By: #### L 100.0100, L500.4050, L501.2450 #### [facility] [address] [place], [address] Thyroid Stim Hormone (TSH)on 12-23-2023 TSH 1.00 uIU/mL Normal 0.358-3.74 [facility] Comment on above: Performed By: #### L 501.9520, L506.1000, L100.0100, L500.4050, L506.0400, L500.4100, L503.0105 #### [facility] [address] [place], [address] Vitamin B12on 12-23-2023 Cobalamin (Vitamin B12) [Mass/Vol] 647 pg/mL Normal 211-911 [facility] Comment on above: Performed By: #### L 501.9520, L506.1000, L100.0100, L500.4050, L506.0400, L500.4100, L503.0105 #### [facility] [address] [place], [address] Vitamin D,25 Hydroxyon 12-22 Vitamin D 25-OH 28.4 ng/mL Normal [facility] Comment on above: Result Comment: Doris min D 25(OH) Status Range Deficiency <20 ng/mL (50nmol/L) Insufficiency 20 - 30 ng/mL (50 - 75 nmol/L) Sufficiency 30 - 100 ng/mL (75 - 250 nmol/L) Toxicity >100 ng/mL (>250 nmol/L) Performed By: #### L 501.9520, L506.1000, L100.0100, L500.4050, L506.0400, L500.4100, L503.0105 #### [facility] [address] [place], [id number] Office Visiton 05-27-2023 Follow-up visit [id number] Millie Gomez 1975 F Date Provider Department Center 05/27/2023 [facility] None Family History Problem Relation Age of Onset Obesity Father Diabetes Father Hypertension Father Heart disease Father Hypertension Sister Family Status - Relation Status Age at Father Sister Alive Level of Service:92688 [facility] OFFICE/OUTPATIENT NEW MODERATE MDM 45-59 MINUTES Reason for Visit and Comments: Weight Loss [055319] - New nsurg Normal [facility] Progress Noteon 05-27-2023 Progress Note [facility] NON-SURGICAL WEIGHT LOSS MANAGEMENT PROGRAM ROOMING NOTE - INITIAL CONSULTATION Patient: Millie Gomez Date of : 1975 Service Date: 05/27/2023 Patient is here today to discuss non-surgical weight loss management. This patient is alone for the evaluation today Weight Metrics: Non-Surgical Initial Eval Consult Date: 05/27/23 Initial Height: 5' 6 (167.6 cm) Initial Weight: 220 lb 9.6 oz (100 kg) [place] Body Weight: 137 lb (62.1 kg) Initial BMI: 35.60 Initial Body Fat %: 42.72 EBW: 83 lb (Flow Sheet: Surgical Wt Loss Management: Baseline) Diabetes Do you currently have diabetes? No Are you currently prescribed insulin? No Are you currently prescribed an oral medication for diabetes? No GERD (Gastroesophageal Reflux Disease) Do you currently have GERD? No Do you get heartburn type symptoms more than twice per week? No Are you currently on a medication for GERD? (not TUMS) (examples: Prilosec/omeprazole, Zantac/ranitidine, etc.) No Hyperlipidemia (high cholesterol) Do you currently have a diagnosis of high cholesterol? No Are you currently prescribed a medication for high cholesterol? (examples Lipitor/Atorvastatin , Pravastatin, Zetia, Tricor, etc.) No Have you been diagnosed with high cholesterol but chosen not to take medication? No Hypertension (high blood pressure) Do you currently have a diagnosis of Hypertension? Yes Are you currently on a medication for Hypertension? Yes Have you been diagnosed with Hypertension but have chosen not to take the medication? No Sleep Apnea Do you currently have Sleep Apnea? No Are you on a device (CPAP, BiPAP, etc) for Sleep Apnea? No Have you been diagnosed with Sleep Apnea but cannot tolerate or have chosen not to treat? No Comorbids Summary (flow sheet comorbids) Falls Risk Assessment Patient does take medications which affect BP or mental status Patient does not have newly prescribed or changed dosage of medications within past 30 days which affect BP or mental status Patient has not fallen in the past 2 months Patient does notdemonstrate unsteady gait Patient uses the following ambulatory assistive devices: none Patient states the presence of the following traits which increases risk of fall: none Patient is not on home O2 Completed by: Caitie Santoro MA [facility] Absolute lymphocyte countOrd ered By: Maranda Augustine on 05-09-2023 Lymphocytes Auto (Unsp spec) [#/Vol] 2.08 10*3/uL 0.83-4.51 [facility] Basophil percentageOrdered B y: Maranda Augustine on 05-09-2023 Basophils/100 WBC (Bld) 1.0 % 0-1 [facility] Bilirubin [Mass/Vol] 0.60 mg/dL 0.20-1.00 [facility] Comment on above: For patients on eltr ombopag therapy, use of Dimension [place] TBIL is not recommended. Chloride [Moles/Vol] 103 mmol/L 98-107 [facility] Cholesterol [Mass/Vol] 177 mg/dL <200 [facility] Comment on above: <200 mg/dL Desirable 200-240 mg/dL Borderline >240 mg/dL High Risk Eosinophils/100 WBC (Bld) 1.6 % 0-5 [facility] Glucose [Mass/Vol] 81 mg/dL 74-106 [facility] Neutrophils (Bld) [#/Vol] 4.5 10*3/uL 2.0-7.7 [facility] Neutrophils/100 WBC (Bld) 61.5 % 47-70 [facility] Potassium [Moles/Vol] 3.9 mmol/L 3.5-5.1 [facility] Protein [Mass/Vol] 8.7 g/dL 6.4-8.2 [facility] Sodium [Moles/Vol] 136 mmol/L 136-145 [facility] Triglyceride [Mass/Vol] 75 mg/dL <199 [facility] Comment on above: The drugs N-Acetylcy steine and Metamizole may falsely depress this assay.Serum Triglycerides Reference Interval Normal <150 mg/dL Borderline high 150 - 199 mg/dL High 200 - 499 mg/dL Very High > or = 500 mg/dL WBC (Bld) [#/Vol] 7.4 10*3/uL 4.4-11.0 [facility] Blood erythrocytes count (nu mber/volume)Ordered By: Maranda Augustine on 05-09-2023 RBC (Bld) [#/Vol] 5.54 10*6/uL 4.2-5.4 [facility] Blood hemoglobin measurement (mass/volume)Ordered By: Maranda Augustine on 05-09-2023 Hemoglobin (Bld) [Mass/Vol] 16.5 g/dL 12.0-15.0 [facility] Blood lymphocytes/100 leukoc ytesOrdered By: Maranda Augustine on 05-09-2023 Lymphocytes/100 WBC (Bld) 28.3 % 19-41 [facility] Blood monocytes/100 leukocyt esOrdered By: Maranda Augustine on 05-09-2023 Monocytes/100 WBC (Bld) 7.3 % 0-10 [facility] Blood platelet mean volumeOr dered By: Maranda Augustine on 05-09-2023 Platelet mean volume (Bld) [Entitic vol] 11.3 fL 6.2-12.0 [facility] Determination of erythrocyte mean corpuscular volume (MCV)Ordered By: Maranda Augustine on 05-09-2023 MCV (RBC) [Entitic vol] 91.2 fL 81-99 [facility] Hematocrit Auto (Bld) [Volum e fraction]Ordered By: Maranda Augustine on 05-09-2023 Hematocrit (Bld) [Volume fraction] 50.5 % 37-47 [facility] - Chemistry and C hemistry - challengeOrdered By: Maranda Augustine on 05-09-2023 ALP [Catalytic activity/Vol] 67 U/L 45-117 [facility] ALT [Catalytic activity/Vol] 45 U/L 13-56 [facility] CO2 [Moles/Vol] 24.0 mmol/L 21.0-32.0 [facility] Globulin (S) [Mass/Vol] 4.4 g/dL 2.2-4.2 [facility] Urea nitrogen/Creatinine [Mass ratio] 12.7 mg/mg 10-20 [facility] - Hematology and Cell countsOrdered By: Maranda Augustine on 05-09-2023 Erythrocyte distribution width (RBC) [Entitic vol] 40.6 fL 35.1-43.9 [facility] Erythrocyte distribution width (RBC) [Ratio] 12.1 % 11.6-14.6 [facility] Immature granulocytes/100 WBC (Bld) 0.300 % 0.0-0.9 [facility] Comment on above: IG% - Immature Granu locytes (promyelocytes, myelocytes and metamyelocytes) > 1% indicates that a LEFT SHIFT is Present. MCH (RBC) [Entitic mass] 29.8 pg 27.0-32.0 [facility] Nucleated RBC/100 WBC (Bld) [Ratio] 0 % 0-5 [facility] MCHC Auto (RBC) [Mass/Vol]Or dered By: Maranda Augustine on 05-09-2023 MCHC (RBC) [Mass/Vol] 32.7 g/dL 32-36 [facility] No Panel InformationOrdered By: Maranda Augustine on 05-09-2023 Estimated GFR (MDRD) Amer 82 mL/min >60 [facility] Comment on above: GFR Calc Estimated GFR (MDRD) Non-Af Amer 68 mL/min >60 [facility] Comment on above: Non- GFR Calc Thyroid Stimulating Hormone (TSH) 0.70 uIU/mL 0.358-3.74 [facility] Urine Microalbumin/Creatinine Ratio TNP [facility] Comment on above: Test not performed Vitamin D 25-Hydroxy 45.9 ng/mL [facility] Comment on above: Vitamin D 25(OH) Sta tus Range Deficiency <20 ng/mL (50nmol/L) Insufficiency 20 - 30 ng/mL (50 - 75 nmol/L) Sufficiency 30 - 100 ng/mL (75 - 250 nmol/L) Toxicity >100 ng/mL (>250 nmol/L) Platelets bldOrdered By: Daya Augustine on 05-09-2023 Platelets (Bld) [#/Vol] 276 10*3/uL 150-450 [facility] Serum or plasma albumin antonino urement (mass/volume)Ordered By: Maranda Augustine on 05-09-2023 Albumin [Mass/Vol] 4.3 g/dL 3.2-5.0 [facility] Serum or plasma albumin/glob ulin mass ratioOrdered By: Maranda Augustine on 05-09-2023 Albumin/Globulin [Mass ratio] 1.0 {ratio} 0.9-2.4 [facility] Serum or plasma calcium antonino urement (mass/volume)Ordered By: Maranda Augustine on 05-09-2023 Calcium [Mass/Vol] 9.6 mg/dL 8.5-10.1 [facility] Serum or plasma cholesterol in HDL measurement (mass/volume)Ordered By: Maranda Augustine on 05-09-2023 Cholesterol in HDL [Mass/Vol] 59 mg/dL >40 [facility] Comment on above: The drugs N-Acetylcy steine and Metamizole may falsely depress this assay. Reference Range HDL <40 mg/dL Low HDL Cholesterol HDL >or= 60 mg/dL High HDL Cholesterol Serum or plasma cholesterol in VLDL measurement (mass/volume)Ordered By: Maranda Augustine on 05-09-2023 Cholesterol in VLDL [Mass/Vol] 15 mg/dL 5-40 [facility] Serum or plasma creatinine m easurement (mass/volume)Ordered By: Maranda Augustine on 05-09-2023 Creatinine [Mass/Vol] 0.94 mg/dL 0.55-1.02 [facility] Comment on above: The validity of the calculated GFR & GFRAA in patients over 70 years has not been determined. Clinical correlation is essential. Serum or plasma low density lipoprotein (LDL) cholesterol measurement (mass/volume)Ordered By: Maranda Augustine on 05-09-2023 Cholesterol in LDL [Mass/Vol] 103 mg/dL 0-130 [facility] Serum or plasma urea nitroge n measurement (mass/volume)Ordered By: Maranda Augustine on 05-09-2023 Urea nitrogen [Mass/Vol] 12 mg/dL 7-18 [facility] Thin prep Papanicolaou smear with manual screeningOrdered By: Maranda Augustine on 05-09-2023 Thin prep Papanicolaou smear with manual screening 23 U/L 15-37 [facility] Thin prep Papanicolaou smear with manual screening 9 5-15 [facility] Thin prep Papanicolaou smear with manual screening < 5.0 mg/L NO RANGE EST. [facility] Urine creatinine measurement (mass/volume)Ordered By: Maranda Augustine on 05-09-2023 Creatinine (U) [Mass/Vol] 28.60 mg/dL NO RANGE EST. [facility] Whole blood hemoglobin A1c/t otal hemoglobin ratio (mass fraction)Ordered By: Maranda Augustine on 05-09-2023 HbA1c (Bld) [Mass fraction] 5.1 % 3.8-5.6 [facility] Comment on above: Normal < 5.7 % Predi abetic 5.7 - 6.4 % Diabetic >or= 6.5 % Please note range changes. Basophil percentageon 2021 Chloride [Moles/Vol] 103 mmol/L 98-107 [facility] Work Phone: Glucose [Mass/Vol] 80 mg/dL 74-106 [facility] Work Phone: Potassium [Moles/Vol] 3.8 mmol/L 3.5-5.1 [facility] Work Phone: Sodium [Moles/Vol] 137 mmol/L 136-145 [facility] Work Phone: Laboratory - Chemistry and C hemistry - challengeon 04-27-2022 CO2 [Moles/Vol] 25.0 mmol/L 21.0-32.0 [facility] Work Phone: Urea nitrogen/Creatinine [Mass ratio] 16.8 mg/mg - [facility] Work Phone: No Panel Informationon 04-27 Estimated GFR (MDRD) Amer 114 mL/min >60 [facility] Work Phone: Comment on above: GFR Calc Estimated GFR (MDRD) Non-Af Amer 94 mL/min >60 [facility] Work Phone: Comment on above: Non- GFR Calc Vitamin D 25-Hydroxy 20.5 ng/mL [facility] Work Phone: Comment on above: Vitamin D 25(OH) Sta tus Range Deficiency <20 ng/mL (50nmol/L) Insufficiency 20 - 30 ng/mL (50 - 75 nmol/L) Sufficiency 30 - 100 ng/mL (75 - 250 nmol/L) Toxicity >100 ng/mL (>250 nmol/L) Serum or plasma calcium antonino urement (mass/volume)on 04-27-2022 Calcium [Mass/Vol] 9.5 mg/dL 8.5-10.1 [facility] Work Phone: Serum or plasma creatinine m easurement (mass/volume)on 04-27-2022 Creatinine [Mass/Vol] 0.71 mg/dL 0.55-1.02 [facility] Work Phone: Comment on above: The validity of the calculated GFR & GFRAA in patients over 70 years has not been determined. Clinical correlation is essential. Serum or plasma urea nitroge n measurement (mass/volume)on 04-27-2022 Urea nitrogen [Mass/Vol] 12 mg/dL 7-18 [facility] Work Phone: Thin prep Papanicolaou smear with manual screeningon 04-27-2022 Thin prep Papanicolaou smear with manual screening 9 5-15 [facility] Work Phone: XR Finger(s) Right 2+ Viewso n 06-26-2020 No acute osseous abnormality. Soft tissue trauma. [facility] Workstation ID: [id number] [facility] EXAMINATION: XR FINGER(S) RIGHT 2+ VIEWS 06/26/2020 6:43 pm HISTORY: ORDERING SYSTEM PROVIDED HISTORY: Right index finger injury, TECHNOLOGIST PROVIDED HISTORY: Injury/Trauma Reason for exam: Laceration anterior and posterior right index finger. Cancer History: u Surgery, RadiationHistory: u Encounter Type: Initial Mechanism of injury: TRauma ORDERING SYSTEM PROVIDED DIAGNOSIS CODES: S61.210A Laceration of right index finger without foreign body without damage to nail, initial encounter COMPARISON: None. FINDINGS: There is a bandage surrounding the index finger. There is soft tissue swelling volar aspect. No radiopaque foreign body. No fracture or dislocation is seen. [facility] Interface, Rad In [employer] Speechq - 06/26/2020 8:43 PM EST EXAMINATION: XR FINGER(S) RIGHT 2+ VIEWS 06/26/2020 6:43 pm HISTORY: ORDERING SYSTEM PROVIDED HISTORY: Right index finger injury, TECHNOLOGIST PROVIDED HISTORY: Injury/Trauma Reason for exam: Laceration anterior and posterior right index finger. Cancer History: u Surgery, RadiationHistory: u Encounter Type: Initial Mechanism of injury: TRauma ORDERING SYSTEM PROVIDED DIAGNOSIS CODES: S61.210A Laceration of right index finger without foreign body without damage to nail, initial encounter COMPARISON: None. FINDINGS: There is a bandage surrounding the index finger. There is soft tissue swelling volar aspect. No radiopaque foreign body. No fracture or dislocation is seen. IMPRESSION: No acute osseous abnormality. Soft tissue trauma. [place] Workstation ID: [id number] [facility] XR CHEST AP/PA AND LATon XR CHEST AP/PA AND LAT EXAMINATION: XR CHEST AP/PA AND LAT 08/07/2019 12:20 PM HISTORY: ORDERING SYSTEM PROVIDED HISTORY: ingestion of dental bridge, TECHNOLOGIST PROVIDED HISTORY: Illness/Other Reason for exam: swalloed part of tooth Cancer History: u Surgery, RadiationHistory: u Encounter Type: Initial Additional signs and symptoms: none ORDERING SYSTEM PROVIDED DIAGNOSIS CODES: T18.9XXA Ingestion of foreign body, initial encounter FINDINGS: Frontal and lateral views of the chest demonstrate clear lungs. The heart size is within normal limits. There are no pleural effusions. No acute bony abnormality is identified. No radiopaque foreign body is identified in the chest or visualized upper abdomen. IMPRESSION: No definite radiopaque foreign body is identified within the chest or visualized upper abdomen. [place]/[facility] Workstation ID: [id number] Dictated by: ALAN RUSSELL on SatAug 07, 2019 12:41:13 PM EST Transcribed by: KATE STRAUSS on SatAug 07, 2019 1:21:38 PM EST Finalized by: ALAN RUSSELL on SatAug 07, 2019 1:29:11 PM EST Normal [facility] Comment on above: Order Comment: Injur y/Trauma or Illness?:Illness/Other swa lled part of tooth How long have you had these symptoms (acute/chronic)?:Acute Reason for exam?:swalloed part of tooth History of cancer?:u Surgeries, chemotherapy, or radiation?:u Type of Exam?:Initial Additional signs and symptoms?:none No definite radiopaque foreign body is identified within the chest or visualized upper abdomen. [employer] Workstation ID: [id number] [facility] EXAMINATION: XR CHEST AP/PA AND LAT 08/07/2019 12:20 PM HISTORY: ORDERING SYSTEM PROVIDED HISTORY: ingestion of dental bridge, TECHNOLOGIST PROVIDED HISTORY: Illness/Other Reason for exam: swalloed part of tooth Cancer History: u Surgery, RadiationHistory: u Encounter Type: Initial Additional signs and symptoms: none ORDERING SYSTEM PROVIDED DIAGNOSIS CODES: T18.9XXA Ingestion of foreign body, initial encounter FINDINGS: Frontal and lateral views of the chest demonstrate clear lungs. The heart size is within normal limits. There are no pleural effusions. No acute bony abnormality is identified. No radiopaque foreign body is identified in the chest or visualized upper abdomen. [facility] - 08/07/2019 1:31 PM EST EXAMINATION: XR CHEST AP/PA AND LAT 08/07/2019 12:20 PM HISTORY: ORDERING SYSTEM PROVIDED HISTORY: ingestion of dental bridge, TECHNOLOGIST PROVIDED HISTORY: Illness/Other Reason for exam: swalloed part of tooth Cancer History: u Surgery, RadiationHistory: u Encounter Type: Initial Additional signs and symptoms: none ORDERING SYSTEM PROVIDED DIAGNOSIS CODES: T18.9XXA Ingestion of foreign body, initial encounter FINDINGS: Frontal and lateral views of the chest demonstrate clear lungs. The heart size is within normal limits. There are no pleural effusions. No acute bony abnormality is identified. No radiopaque foreign body is identified in the chest or visualized upper abdomen. IMPRESSION: No definite radiopaque foreign body is identified within the chest or visualized upper abdomen. [employer] Workstation ID: [id number] [facility] Vital Signs Date Time Vital Sign Value Performing Clinician Facility 09-15-2024 08:26-0500 Body height 167.6 cm Acosta Dean MD Work Phone: [facility] 09-15-2024 08:26-0500 Body mass index (BMI) [Ratio] 38.09 kg/m2 Acosta Dean MD Work Phone: [facility] 09-15-2024 08:26-0500 Body weight 107.05 kg Acosta Dean MD Work Phone: [facility] 09-15-2024 08:26-0500 Respiratory rate 16 /min Acosta Dean MD Work Phone: [facility] 05-27-2023 13:46-0500 Body height 167.6 cm Gui Chapman MD Work Phone: [facility] 05-27-2023 13:46-0500 Body mass index (BMI) [Ratio] 35.61 kg/m2 Gui Chapman MD Work Phone: [facility] 05-27-2023 13:46-0500 Body weight 100.06 kg Gui Chapman MD Work Phone: [facility] 05-27-2023 13:46-0500 Diastolic blood pressure 90 mm[Hg] Gui Chapman MD Work Phone: [facility] 05-27-2023 13:46-0500 Heart rate 80 /min Gui Chapman MD Work Phone: [facility] 05-27-2023 13:46-0500 Systolic blood pressure 135 mm[Hg] Gui Chapman MD Work Phone: [facility] 02-08-2022 09:55-0400 Body height 170.[address] Hasmukh Rousseau Work Phone: [facility] Work Phone: 02-08-2022 09:55-0400 Body mass index (BMI) [Ratio] 40.7 kg/m2 Dr. Hasmukh Rousseau Work Phone: [facility] Work Phone: 02-08-2022 09:55-0400 Body weight 117.[address] Hasmukh Rousseau Work Phone: [facility] Work Phone: 02-08-2022 09:55-0400 Diastolic blood pressure 84 mm[Hg] Dr. Hasmukh Rousseau Work Phone: [facility] Work Phone: 02-08-2022 09:55-0400 Respiratory rate 18 /min Dr. Hasmukh Rousseau Work Phone: [facility] Work Phone: 02-08-2022 09:55-0400 Systolic blood pressure 123 mm[Hg] Dr. Hasmukh Rousseau Work Phone: [facility] Work Phone: 06-26-2020 18:00-0500 BP Diastolic 92 mm[Hg] Vince [facility] 06-26-2020 18:00-0500 BP Systolic 126 mm[Hg] [facility] 06-26-2020 17:23-0500 BMI (Body Mass Index) 38.74 kg/m2 [facility] 06-26-2020 17:23-0500 Body weight 108.86 kg Vince Janet [facility] 06-26-2020 17:23-0500 Height 167.6 cm Vince [facility] 06-26-2020 16:51-0500 BMI (Body Mass Index) 38.74 kg/m2 Christiano [facility] 06-26-2020 16:51-0500 Body Temperature 97.59 [degF] Christian[facility] 06-26-2020 16:51-0500 Body weight 108.86 kg Christiano [facility] 06-26-2020 16:51-0500 BP Diastolic 88 mm[Hg] Christiano [facility] 06-26-2020 16:51-0500 BP Systolic 128 mm[Hg] Christiano [facility] 06-26-2020 16:51-0500 Height 167.6 cm Christiano [facility] 06-26-2020 16:51-0500 Pulse (Heart Rate) 87 /min Christian[facility] 06-26-2020 16:51-0500 Pulse Oximetry 98 % Christian[facility] 06-26-2020 16:51-0500 Respiratory Rate 16 /min Christiano [facility] 08-07-2019 11:59-0500 BMI (Body Mass Index) 37.93 kg/m2 Julio Soriano [facility] 08-07-2019 11:59-0500 Body Temperature 97.9 [degF] Julio Soriano [facility] 08-07-2019 11:59-0500 Body weight 106.59 kg Julio Soriano [facility] 08-07-2019 11:59-0500 BP Diastolic 86 mm[Hg] Julio Soriano [facility] 08-07-2019 11:59-0500 BP Systolic 125 mm[Hg] Julio Soriano [facility] 08-07-2019 11:59-0500 Height 167.6 cm Julio Soriano [facility] 08-07-2019 11:59-0500 Pulse (Heart Rate) 72 /min Julio Soriano [facility] 08-07-2019 11:59-0500 Pulse Oximetry 96 % Julio Soriano [facility] 08-07-2019 11:59-0500 Respiratory Rate 12 /min Julio Soriano [facility] Encounters Encounter Date Encounter Type Care Provider Facility Start: 09-15-2024 End: 09-15-2024 Office outpatient new 45 minutes Acosta Dean MD Work Phone: [facility] Comment on above: Kidney stone (Primar y Dx); Kidney cysts Start: 09-15-2024 ambulatory ACOSTA DEAN [facility] Start: 09-09-2024 End: 09-09-2024 ambulatory HASMUKH JAUREGUI KATHLEEN [facility] Start: 09-03-2024 ambulatory JOY PENG [facility] Start: 08-20-2024 End: 08-20-2024 ambulatory Wilda Payan Facility:[facility] Start: 06-29-2024 End: 06-29-2024 ambulatory [facility] Facility:[facility] Start: 12-30-2023 Encounter for genera l adult medical examination with abnormal findings Elvira Reece [facility] Start: 12-23-2023 End: 12-23-2023 ambulatory [facility] Facility:[facility] Start: 05-27-2023 End: 05-27-2023 [facility] Start: 05-27-2023 End: 05-27-2023 Office outpatient new 45 minutes Gui Chapman MD Work Phone: [facility] Comment on above: Obesity, unspecified classification, unspecified obesity type, unspecified whether serious comorbidity present (Primary Dx); Hypertension, unspecified type Start: 05-09-2023 End: 05-09-2023 ambulatory [facility] Work Phone: Start: 05-09-2023 End: 05-09-2023 Patient encounter procedure [facility] [place] Work Phone: Start: 04-27-2022 End: 04-27-[address] Hasmukh Rousseau Work Phone: [facility] Work Phone: Start: 04-27-2022 End: 04-27-[address] Hasmukh Rousseau Work Phone: [facility] Start: 02-21-2022 End: 02-21-[address] Hasmukh Rousseau Work Phone: [facility] Start: 02-13-2022 End: 02-13-[address] Hasmukh Rousseau Work Phone: [facility] Start: 02-08-2022 End: 02-08-[address] Hasmukh Rousseau Work Phone: [facility] Start: 12-27-2021 End: 12-27-2021 Patient encounter procedure [facility] Start: 06-26-2020 End: 06-26-2020 Patient encounter procedure HASMUKH ROUSSEAU [facility] Start: 06-26-2020 End: 06-26-2020 Emergency department patient visit Vince Gonzales Work Phone: [facility] Comment on above: Laceration of right index finger without foreign body without damage to nail, initial encounter (Primary Dx) Start: 06-26-2020 End: 06-26-2020 Patient encounter procedure Christiano Veronica Work Phone: [facility] [place] Comment on above: Laceration of right index finger without damage to nail, foreign body presence unspecified, initial encounter (Primary Dx) Start: 08-07-2019 End: 08-11-2019 Patient encounter procedure JULIO SORIANO [facility] Start: 08-07-2019 End: 08-07-2019 Office outpatient visit 15 minutes Julio Soriano Work Phone: [facility] [place] Comment on above: Ingestion of foreign body, initial encounter (Primary Dx) Start: 04-13-2017 End: 04-14-2017 Emergency department patient visit Ras Shruthi Pina Facility:[facility] Procedures Date Procedure Procedure Detail Performing Clinician Start: 09-15-2024 Urnls dip stick/tabl et rgnt auto w/o microscopy Acosta Dean MD Work Phone: Start: 12-27-2021 End: 12-27-2021 Screening mammography Start: 06-26-2020 Radex fingr minimum 2 views Vince Rings Work Phone: Start: 08-07-2019 Standard chest X-ray Memo Soriano Work Phone: Start: 02-09-2011 Microscopic observat ion [Identifier] in Cervix by Cyto stain Julio Soriano Plan of Treatment Date Care Activity Detail Author Start: 04-13-2027 DTaP/Tdap/Td Vaccine s (2 - Td or Tdap) DTaP/Tdap/Td Vaccines (2 - Td or Tdap) [facility] Start: 04-13-2027 Tetanus vaccination [facility] Start: 2026 Zoster Vaccines (1 of 2) Zoste r Vaccines (1 of 2) [facility] Start: 09-15-2025 End: 09-15-2025 US Kidney US RENAL Imaging Routine Kidney cysts Expected: 09/15/2025 (Approximate), Expires: 09/15/2025 [facility] Comment on above: Expected: 09/15/2025 (Approximate), Expires: 09/15/2025 Start: 09-15-2025 End: 09-15-2025 XR Abdomen Single view XR ABDOMEN 1 VIEW Imaging Routine Kidney stone Kidney cysts Expected: 09/15/2025 (Approximate), Expires: 09/15/2025 [facility] Comment on above: Expected: 09/15/2025 (Approximate), Expires: 09/15/2025 Start: 09-14-2025 End: 09-14-2025 Patient encounter procedure 09/14/2025 10:30 AM EST Office Visit [facility] [address] [place] [address] Acosta Dean MD [address] [place] [address] [facility] Start: 03-22-2024 COVID-19 VACCINE ( season) COVID-19 VACCINE ( season) [facility] Start: 03-22-2024 Influenza vaccination INFLUENZA VACC INE (#1) [facility] Start: 08-15-2023 End: 08-15-2023 Patient encounter procedure 08/15/2023 1:00 PM EST Office Visit [facility] [address] [place] [phone] Gui Chapman MD [address] [place] [address] [address] [place] [address] [facility] Start: 12-27-2022 Screening for malign ant neoplasm of breast Mammogram [facility] Start: 2021 Screening for malign ant neoplasm of colon COLORECTAL CANCER SCREENING DISCUSSION [facility] Start: 05-15-2021 COVID-19 Vaccine (3 - Pfizer series) COVID-19 Vaccine (3 - Pfizer series) [facility] Start: 03-22-2020 Influenza vaccinatio n given Sequential Influenza Vaccine (#1) [facility] Start: 03-22-2019 Influenza vaccinatio n given SEQUENTIAL INFLUENZA VACCINE (#1) [facility] Start: 2016 Lipid panel LIPID SCREENING [facility] Start: 2016 Screening for malign ant neoplasm of breast MAMMOGRAM SCREENING DISCUSSION [facility] Start: 02-09-2014 Screening for malign ant neoplasm of cervix PAP SMEAR [facility] Start: 2006 Screening for malign ant neoplasm of cervix [facility] Start: 1997 Screening for malign ant neoplasm of cervix [facility] Start: 1995 Hepatitis B vaccination HEP B VACCINE (1 of 3 - 19+ 3-dose series) [facility] Start: 1994 Diabetes mellitus screening Diabetes Screening [facility] Start: 1994 Hepatitis C antibody , confirmatory test Hepatitis C Screening [facility] Start: 1994 Hepatitis C screening Hepatitis C Sc reening [facility] Start: 1991 HIV screening [facility] Start: 1988 Adolescent depressio n screening assessment [facility] Start: 1979 History and physical examination, annual for health maintenance Wellness Visit [facility] Start: 1977 MMR Vaccines (1 of 1 - Standard series) MMR Vaccines (1 of 1 - Standard series) [facility] Start: 1976 Hepatitis B Vaccines (1 of 3 - 3-dose series) Hepatitis B Vaccines (1 of 3 - 3-dose series) [facility] Start: 1976 Hepatitis C screening HEPATITI S C VIRUS SCREENING [facility] Start: 1976 HIV screening HIV Screening [facility] Start: 1976 Lipid panel Lipid Panel [facility] Start: 1976 Screening for malign ant neoplasm of colon [facility] Start: 1976 Screening mammography Mammogram [facility] Start: 1976 Tetanus vaccination TETANUS EVERY 10 YR [facility] Antonino post-voiding residual urine&/bladder cap [facility] POST-VOIDING RESIDUAL URINE&/BLADDER CAP [facility] Charge Routine Kidney stone Kidney cysts Ordered: 09/15/2024 [facility] Comment on above: Ordered: 09/15/2024 Immunizations Immunization Date Immunization Notes Care Provider Bam rm 05-01-2019 Seasonal, quadrivale nt, recombinant, injectable influenza vaccine, preservative free Julio Bo [facility] 05-01-2019 influenza virus vaccine, unspecified formulation Acosta Dean MD Work Phone: [facility] 04-13-2017 tetanus toxoid, redu chico diphtheria toxoid, and acellular pertussis vaccine, adsorbed Julio Bo [facility] Payers Date Payer Category Payer Self-pay [id number] 2022 Managed Care (unspecified) [employer] H[employer] PPO POS [id number] 2022 Unknown [id number] 2022 Unknown [id number] 2019 Unknown [facility] xxx xxxxxx 2019-Present xxxxxxxxx [id number] 2019 Unknown [facility] xxx [id number] 2019-Present [id number] 2019 Unknown [id number] 2017 Private Health Insurance 2014 Unknown [id number] 1975 Unknown [id number] 1975 Unknown [id number] 1976 Unknown [id number] 1976 Unknown [id number] [id number] 1975 Unknown [id number] 1975 Unknown [id number] Unknown [id number] Unknown [id number] Unknown [id number] Unknown [id number] Social History Date Type Detail Facility Start: 08-07-2019 End: 09-15-2024 Tobacco smoking status NDIS Never smoker [facility] Start: 08-07-2019 Alcohol intake Not Asked [facility] Start: 1975 Sex Assigned At Not on file [facility] Start: 06-26-2020 End: 09-15-2024 Tobacco use and exposure Never used [facility] Start: 06-26-2020 End: 09-15-2024 Alcohol intake Current drinker of alcohol (finding) [facility] Exposure to SARS-CoV -2 (event) Not sure [facility] Start: 1975 Sex Assigned At Female [facility] Start: 02-13-2022 Tobacco smoking status NDIS Unknown if ever smoked [facility] Start: 04-19-2023 End: 09-15-2024 History of Social function [facility] Start: 04-19-2023 End: 09-15-2024 Tobacco use panel [facility] Start: 05-27-2023 Gender identity Identifies as female gender (finding) [facility] Start: 05-27-2023 Sexual orientation Heterosexual (finding) [facility] Start: 09-15-2024 Alcohol Comment Glass of wine a day [facility] Start: 08-03-2019 Sex Female (finding) [facility] Start: 09-14-2024 Sexual orientation Choose not to disclose [facility] History of Present illness Narrative 09-15-2024 Acosta Dean MD - 09/15/2024 8:30 AM Mckenna Rascon - 09/15/2024 8:30 AM Rasheed Casillas - 09/15/2024 8:30 AM EST Note Date & Type Note Facility 09-15-2024 History of Presen t illness Narrative Reason for Consult Kidney Stone HPI Ms. Gomez is a 49 y.o. female who presents with kidney stone. She presents for evaluation due to having left flank pain. Imaging obtained included CT, showing a 4 mm calculus projects in the lower pole of the right kidney, additional punctate calcification noted in the upper right kidney. There is homogeneous exophytic 2.5 cm lesion in the upper pole of the left kidney compatible with a cyst. . The patient currently denies flank pain, gross hematuria, or dysuria or new lower urinary tract symptoms. Also denies fevers, chills, nausea, vomiting. Past Medical History She has no past medical history on file. Past Surgical History She has no past surgical history on file. Medications She currently has no medications in their medication list. Allergies She has no allergies on file. Social History She has no history on file for tobacco use, alcohol use, and drug use. Family History She has no family history of bladder or kidney cancer She has no family history of kidney stones Review of Systems Constitutional: No fevers or chills Skin: Negative for rash Endocrine: No heat/cold intolerance Cardiovascular: Negative for chest pain or dyspnea on exertion Respiratory: Negative for shortness of breath or wheezing Gastrointestinal: No constipation, nausea or vomiting Genitourinary: See HPI Musculoskeletal: No flank pain Neurological: Negative for frequent headaches or dizziness Lymph/Heme: Negative for leg swelling or calf pain. Physical Exam There were no vitals taken for this visit. Constitutional: NAD, WDWN HEENT: NCAT. Conjunctivae normal MMM Cardiovascular: Regular rate Pulmonary/Chest: Respirations are even and non-labored bilaterally Abdominal: Soft with no distension, tenderness, masses, guarding or CVA tenderness Neurological: A + O x 3, cranial nerves II-XII grossly intact, normal gait Extremities: HILDA x 4, warm, no clubbing, no cyanosis Skin: [place], warm, dry with no rash Labs Radiographic Studies CT (09/09/24) kidneys demonstrate no hydronephrosis. A 4 mm calculus projects in the lower pole of the right kidney. Additional punctate calcification noted in the upper right kidney. There is homogeneous exophytic 2.5 cm lesion in the upper pole of the left kidney compatible with a cyst. Assessment Ms. Gomez is a 49 y.o. female with kidney stone on CT imaging, with symptoms of left sided flank pain. Kidney Cyst -CT demonstrated a 4mm calculus projects in the lower pole of the right kidney. Additional punctate calcification noted in the upper right kidney. There is homogeneous exophytic 2.5 cm lesion in the upper pole of the left kidney compatible with a cyst. -She does have left sided pain intermittently for about 2 months. Pain is worse when she sits and lays on her left side.It does not keep her up at night. Denies hematuria. Her dad has had a kidney transplant in the past. UA negative. -No history of kidney stones. No history of constipation. She has regular Can Striper visits. We will continue to monitor. Kidney Stone -4mm stone on right side. Denies pain. We will continue to monitor. Plan 1. The cyst is simple measuring 2.5cm, but given she does have intermittent pain, we will observe at this time . On the right side, there is a 4mm stone that we will monitor. I do not believe the small cyst is causing her left flank and LLQ pain. 2. Follow up in 1 year with [facility] and [facility] prior. She will call the office if her pain persists or worsens. Nurse Note: Review of Systems Constitutional: Negative. HENT: Negative. Eyes: Negative. Respiratory: Negative. Cardiovascular: Negative. Gastrointestinal: Negative. Endocrine: Negative. Genitourinary: Positive for flank pain (Left side only). Skin: Negative. Allergic/Immunologic: Negative. Neurological: Negative. Hematological: Negative. Psychiatric/Behavioral: Negative. Nursing Assessment: Physical Exam Patient is new to clinic for a cyst on right kidney, and a stone on the right side. Lab Results Component Value Date APPEARANCE clear 09/15/2024 COLOR yellow 09/15/2024 SPECIFICGRAV 1.025 09/15/2024 BLOOD neg 09/15/2024 PROTEIN 30 09/15/2024 UROBILINOGEN 0.2 09/15/2024 NITRITE neg 09/15/2024 LEUKOCYTE neg 09/15/2024 documented in this encounter [facility] Clinical Note 05-27-2023 Note Date & Type Note Facility 05-27-[address] [facility] NON-SURGICAL WEIGHT LOSS MANAGEMENT PROGRAM PROGRESS NOTE INITIAL EVALUATION Patient: Millie Gomez Date of : 1975 Service Date: 05/27/2023 Patient History/Assessment Summary: The patient is a pleasant 47 y.o. year old female, who is Height: 5' 6 (167.6 cm) tall with a weight of Weight: 220 lb 9.6 oz (100 kg) pounds, resulting in a BMI of Body mass index is 35.61 kg/m?. kg/m2. They have been overweight for years. They have tried and failed multiple previous diet attempts and is now seeking non-surgical treatment. The patient does not have any acute complaints. PLAN ROS: I have reviewed New Patient Assessment Form with the Patient, which is located in the Pediatric Oncologist Tab. History: Past Medical History: Diagnosis Date Back pain Essential hypertension Morbid obesity due to excess calories (HCC) Shortness of breath on exertion No past surgical history on file. Family History Problem Relation Name Age of Onset Obesity Father Diabetes Father Hypertension Father Heart disease Father Hypertension Sister Social History Tobacco Use Smoking status: Never Smokeless tobacco: Never Substance Use Topics Alcohol use: Yes This patient's excess weight is causing the following co-morbid conditions at this time:HTN Current Meds Patient's Medications New Prescriptions No medications on file Previous Medications LEVONORGESTREL (LILETTA) 20.1 MCG/DAY IUD 1 each by IntraUTERine route Once. LISINOPRIL 10 MG TABLET Take by mouth daily. SEMAGLUTIDE-WEIGHT MANAGEMENT (WEGOVY) 1.7 MG/0.75ML SOLUTION AUTO-INJECTOR Inject 1.7 mg under the skin every 7 days. Modified Medications No medications on file Discontinued Medications No medications on file Physical Examination: BP (!) 135/90 Pulse 80 Ht 5' 6 (1.676 m) Wt 220 lb 9.6 oz (100 kg) BMI 35.61 kg/m? Weight Metrics: Orondo Body Weight: Orondo Body Weight: 137 lb (62.1 kg) Excess Body Weight: General: Alert and oriented x 4, obese, no apparent distress. normocephalic and atraumatic Cardiac: Regular rate and rhythm without evidence of murmur Respiratory: Clear to auscultation bilaterally; No evidence of respiratory distress Musculoskeletal: No edema of extremities, ambulatory without assistance Neurological: Nonfocal neurologic exam I reviewed all of the patient's medications and diagnoses listed in Epic. Current Diet Dinner 6:00-7:30pm, rare eating after dinner Breakfast: half days No sugar sweetened beverages Plan: --Obesity class II, elevated BMI Diet and exercise (DE) Diet recommendations provided to patient verbally and in the form of handouts; they understood and agreed with plan. -Phentermine - has been on this a few times, recently lost 17 pounds -Mounjaro is not covered -Wegovy authorized via a telehealth service, lost 49 pounds since November 2022 -will be starting 2.4mg soon -Tolerating 1.7mg dose well, no significant side effects -a shared decision was made to continue obtaining Wegovy prescriptions from telehealth, although [facility] can take over in the future pending further discussions with Ms. Gomez -protein goal - will be discussed with Ms. Gomez's outpatient providers based on her renal function in setting of her strong family history of renal disease GLP-1 agonist, GLP/GIP. Risks/benefits discussed in detail. The patient understood and agrees with plan. Risks including but not limited to the following were discussed: -Constipation, nausea/vomiting, abdominal pain, diarrhea -Acute kidney injury -Pancreatitis - denies -Medullary thyroid cancer / Multiple endocrine neoplasia 2 (MEN2) syndrome (personal or family history) - denies -Hypoglycemia - patient understood -increased incidence diabetic retinopathy -gallbladder disease -may alter absorption of other meds -may also cause other rare side effects (such as low blood pressure, alopecia, rash/hives, blindness, dizziness) -GLP-1 agonists with other weight loss medications - efficacy/safety not established -Increased concentration with sleeve and RYGB -stop 2-3 weeks prior to gastric bypass surgery -Not in /planning: IUD -GI surgeries: none -Anti-obesity medications are nursing home medications. Weight gain will likely result when medication is stopped. -The patient verbalized understanding of the above and agrees with the plan. --HTN: stable (diastolic blood pressure elevated today, asymptomatic, monitor), managed by PCP, asymptomatic, Discussed blood pressure could decrease with weight loss, potentially resulting in dizziness/lightheadedness (which can result in fall/injury). Patient understood. Adequate hydration and follow up with PCP for abnormal blood pressures and possible medication adjustments discussed - patient understood and agreed. --Discussed blood glucose could decrease with weight loss. Patient understood. They are aware of (more content not included)... [facility] History of Present illness Narrative 05-27-2023 Caitie Santoro MA - 05/27/2023 2:00 PM Jose Chapman MD - 05/27/2023 2:00 PM EST Note Date & Type Note Facility 05-27-2023 History of Presen t illness Narrative [facility] NON-SURGICAL WEIGHT LOSS MANAGEMENT PROGRAM ROOMING NOTE - INITIAL CONSULTATION Patient: Millie Gomez Date of : 1975 Service Date: 05/27/2023 Patient is here today to discuss non-surgical weight loss management. This patient is alone for the evaluation today Weight Metrics: Non-Surgical Initial Eval Consult Date: 05/27/23 Initial Height: 5' 6 (167.6 cm) Initial Weight: 220 lb 9.6 oz (100 kg) Orondo Body Weight: 137 lb (62.1 kg) Initial BMI: 35.60 Initial Body Fat %: 42.72 EBW: 83 lb (Flow Sheet: Surgical Wt Loss Management: Baseline) Diabetes Do you currently have diabetes? No Are you currently prescribed insulin? No Are you currently prescribed an oral medication for diabetes? No GERD (Gastroesophageal Reflux Disease) Do you currently have GERD? No Do you get heartburn type symptoms more than twice per week? No Are you currently on a medication for GERD? (not TUMS) (examples: Prilosec/omeprazole, Zantac/ranitidine, etc.) No Hyperlipidemia (high cholesterol) Do you currently have a diagnosis of high cholesterol? No Are you currently prescribed a medication for high cholesterol? (examples Lipitor/Atorvastatin, Pravastatin, Zetia, Tricor, etc.) No Have you been diagnosed with high cholesterol but chosen not to take medication? No Hypertension (high blood pressure) Do you currently have a diagnosis of Hypertension? Yes Are you currently on a medication for Hypertension? Yes Have you been diagnosed with Hypertension but have chosen not to take the medication? No Sleep Apnea Do you currently have Sleep Apnea? No Are you on a device (CPAP, BiPAP, etc) for Sleep Apnea? No Have you been diagnosed with Sleep Apnea but cannot tolerate or have chosen not to treat? No Comorbids Summary (flow sheet comorbids) Falls Risk Assessment Patient does take medications which affect BP or mental status Patient does not have newly prescribed or changed dosage of medications within past 30 days which affect BP or mental status Patient has not fallen in the past 2 months Patient does notdemonstrate unsteady gait Patient uses the following ambulatory assistive devices: none Patient states the presence of the following traits which increases risk of fall: none Patient is not on home O2 Completed by: Caitie Santoro MA [facility] NON-SURGICAL WEIGHT LOSS MANAGEMENT PROGRAM PROGRESS NOTE INITIAL EVALUATION Patient: Millie Gomez Date of : 1975 Service Date: 05/27/2023 Patient History/Assessment Summary: The patient is a pleasant 47 y.o. year old female, who is Height: 5' 6 (167.6 cm) tall with a weight of Weight: 220 lb 9.6 oz (100 kg) pounds, resulting in a BMI of Body mass index is 35.61 kg/m . kg/m2. They have been overweight for years. They have tried and failed multiple previous diet attempts and is now seeking non-surgical treatment. The patient does not have any acute complaints. PLAN ROS: I have reviewed New Patient Assessment Form with the Patient, which is located in the Pediatric Oncologist Tab. History: Past Medical History: Diagnosis Date Back pain Essential hypertension Morbid obesity due to excess calories (HCC) Shortness of breath on exertion No past surgical history on file. Family History Problem Relation Name Age of Onset Obesity Father Diabetes Father Hypertension Father Heart disease Father Hypertension Sister Social History Tobacco Use Smoking status: Never Smokeless tobacco: Never Substance Use Topics Alcohol use: Yes This patient's excess weight is causing the following co-morbid conditions at this time:HTN Current Meds Patient's Medications New Prescriptions No medications on file Previous Medications LEVONORGESTREL (LILETTA) 20.1 MCG/DAY IUD 1 each by IntraUTERine route Once. LISINOPRIL 10 MG TABLET Take by mouth daily. SEMAGLUTIDE-WEIGHT MANAGEMENT (WEGOVY) 1.7 MG/0.75ML SOLUTION AUTO-INJECTOR Inject 1.7 mg under the skin every 7 days. Modified Medications No medications on file Discontinued Medications No medications on file Physical Examination: BP (!) 135/90 Pulse 80 Ht 5' 6 (1.676 m) Wt 220 lb 9.6 oz (100 kg) BMI 35.61 kg/m Weight Metrics: Orondo Body Weight: Orondo Body Weight: 137 lb (62.1 kg) Excess Body Weight: General: Alert and oriented x 4, obese, no apparent distress. normocephalic and atraumatic Cardiac: Regular rate and rhythm without evidence of murmur Respiratory: Clear to auscultation bilaterally; No evidence of respiratory distress Musculoskeletal: No edema of extremities, ambulatory without assistance Neurological: Nonfocal neurologic exam I reviewed all of the patient's medications and diagnoses listed in Epic. Current Diet Dinner 6:00-7:30pm, rare eating after dinner Breakfast: half days No sugar sweetened beverages Plan: --Obesity class II, elevated BMI Diet and exercise (DE) Diet recommendations provided to patient verbally and in the form of handouts; they understood and agreed with plan. -Phentermine - has been on this a few times, recently lost 17 pounds -Mounjaro is not covered -Wegovy authorized via a telehealth service, lost 49 pounds since November 2022 -will be starting 2.4mg soon -Tolerating 1.7mg dose well, no significant side effects -a shared decision was made to continue obtaining Wegovy prescriptions from telehealth, although [facility] can take over in the future pending further discussions with Ms. Gomez -protein goal - will be discussed with Ms. Gomez's outpatient providers based on her renal function in setting of her strong family history of renal disease GLP-1 agonist, GLP/GIP. Risks/benefits discussed in detail. The patient understood and agrees with plan. Risks including but not limited to the following were discussed: -Constipation, nausea/vomiting, abdominal pain, diarrhea -Acute kidney injury -Pancreatitis - denies -Medullary thyroid cancer / Multiple endocrine neoplasia 2 (MEN2) syndrome (personal or family history) - denies -Hypoglycemia - patient understood -increased incidence diabetic retinopathy -gallbladder disease -may alter absorption of other meds -may also cause other rare side effects (such as low blood pressure, alopecia, rash/hives, blindness, dizziness) -GLP-1 agonists with other weight loss medications - efficacy/safety not established -Increased concentration with sleeve and RYGB -stop 2-3 weeks prior to gastric bypass surgery -Not in /planning: IUD -GI surgeries: none -Anti-obesity medications are nursing home medications. Weight gain will likely result when medication is stopped. -The patient verbalized understanding of the above and agrees with the plan. --HTN: stable (diastolic blood pressure elevated today, asymptomatic, monitor), managed by PCP, asymptomatic, Discussed blood pressure could decrease with weight loss, potentially resulting in dizziness/lightheadedness (which can result in fall/injury). Patient understood. Adequate hydration and follow up with PCP for abnormal blood pressures and possible medication adjustments discussed - patient understood and agreed. --Discussed blood glucose could decrease with weight loss. Patient understood. They are aware of symptoms of hypoglycemia and treatment of hypoglycemia. Patient will follow up with their outpatient providers --Labs: unavailable, Ms. Gomez had labs done 2 weeks ago and will try to bring them in next time Plan of care discussed with patient, all questions answered, they agree with plan of care. Patient to return for follow up in 2 months. Medical decision making: Patient's medical conditions place them at a moderate risk of complications, morbidity, and mortality. Orders Placed [facility] Patient Active Problem List Diagnosis Morbid obesity due to excess calories (HCC) Essential hypertension Gui Chapman MD 05/27/2023 2:20 PM documented in this encounter [facility] Evaluation note Note Date & Type Note Facility Evaluation note No assessment information availa ble [facility] Work Phone: Evaluation note Note Date & Type Note Facility Evaluation note Diagnosis Onset Date Lipoma of left thigh acute Lipoma of left thigh acute Lipoma of left thigh acute [facility] Work Phone: Evaluation note Note Date & Type Note Facility Evaluation note Diagnosis Obesity, unspecified classification, unspecified obesity type, unspecified whether serious comorbidity present- Primary Hypertension, unspecified type documented in this encounter [facility] Evaluation note Note Date & Type Note Facility Evaluation note Diagnosis Kidney stone- Primary Calculus of kidney Kidney cysts Unspecified congenital cystic kidney disease documented in this encounter [facility] Reason for referral (narrative) Consultation (Routine) - Pending Review Note Date & Type Note Facility Reason for referral (narrati ve) Specialty Diagnoses / Procedures Referred By Contac t Referred To Contact Dietitian / Bariatrics Diagnoses Obesity, unspecified classification, unspecified obesity type, unspecified whether serious comorbidity present Procedures [facility] OFFICE/OUTPATIENT [facility] 60-74 MINUTES Gui Chapman MD [address] [place] [address] [facility] [address] [place] [address] Referral ID Status Reason Start Date Expiration Date Visits Requested Visits Authorized [id number] Pending Review Specialty Services Required 05/27/2023 05/26/2024 1 1 [facility] Summary Purpose Family History No Family History Records Found Relationship Condition Age at Onset Recorded Date/T laurita father Cardiac disease Unknown Coronary artery disease Unknown Kidney disorder Unknown Cerebrovascular accident (CVA) Unknown Malignant neoplasm Unknown Advance Directives No Advanced Directives Records FoundDocuments on File Type Date Recorded 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 If you have any nausea or vomiting, fever develops, abdominal or pelvic pain, blood in stool or dark tarry stool, go to the ER for further evaluation. The object should be expelled by 7 to 10 days. Otherwise if you have any concerns, follow-up with your primary care provider. Swallowed Object in Throat or Esophagus: Care Instructions Your Care Instructions When you swallow food, liquid, or an object, it passes from your mouth and goes down your throat and esophagus and into your stomach. But sometimes these things can get stuck in your throat or esophagus. This may make you choke, cough, or gag. Some objects can cause more problems than others. Sharp, long, or large objects can scratch or cut your throat, your esophagus, and your stomach if they get stuck or if they are swallowed. When this happens, these areas can bleed or get infected. If the object was stuck in your throat or esophagus, your doctor probably removed it. If you swallowed the object, your doctor may have suggested that you wait and see if the object comes out in yourstool. Most swallowed objects will pass through your body without any problem and show up in your stool within 3 days. If the object does not show up in your stool within 7 days, your doctor may order tests to find out where it is in your body. Your throat may feel sore after you have had an object removed or have swallowed an object that hasscratched your throat. It may hurt for a few days when you eat or swallow. The scratch itself may make it feel as if something is still stuck in your throat. Follow-up care is a randle part of your treatment and safety. Be sure to make and go to all appointments, and call your doctor if you are having problems. It is also a good idea to know your test results and keep a list of the medicines you take. How can you care for yourself at home? Take pain medicines exactly as directed. ? If the doctor gave you a prescription medicine for pain, take it as prescribed. ? If you are not taking a prescription pain medicine, ask your doctor if you can take an [id number] medicine. If your doctor prescribed antibiotics, take them as directed. Do not stop taking them just because you feel better. You need to take the full course of antibiotics. Drink liquids. If swallowing liquids is easy, try eating soft foods like bread or bananas. If thesefoods are easy to swallow, start to add other foods. Avoid very hot or very cold foods. If you swallowed an object and it has passed through to your stomach, try eating foods that are high in fiber, such as fruits, vegetables, and whole grains. These foods may help you pass the object more quickly. Watch your stools to see if the object has passed. Do not use a laxative unless your doctor says that it is okay. Do not smoke. Smoking can irritate your throat and your esophagus even more. If you need help quitting, talk to your doctor about stop-smoking programs and medicines. These can increase your chances of quitting for good. To prevent swallowing objects or choking: Cut food into small pieces. Eat slowly, take small bites, and chew your food all the way. Do not laugh or talk with food in your mouth. Do not eat or drink while you are doing something else, such as when you drive. Do not hold objects, such as pins, nails, or toothpicks, in your mouth or between your lips. Limit how much alcohol you drink while you eat. When should you call for help? Call 911 anytime you think you may need emergency care. For example, call if: You have chest pain. You vomit a large amount of blood or what looks like coffee grounds. You have severe stomach pain. You pass maroon or very bloody stools. You can't swallow. You have severe trouble breathing. Call your doctor now or seek immediate medical care if: You have any stomach pain. You have signs of an infection, such as: ? Pain, swelling, or tenderness in or around your throat, neck, chest, or belly. ? A fever. ? A cough. ? Shortness of breath. You vomit a small amount of blood or what looks like coffee grounds. You have trouble breathing. You have trouble swallowing. You vomited more than one time since you had an object removed from your throat or esophagus or since you swallowed an object. Your stools are black and tarlike or have streaks of blood. Watch closely for changes in your health, and be sure to contact your doctor if: You still feel like you have something stuck in your throat or esophagus. You do not get better as expected. Where can you learn more? Log into your personal health record on [email or web address]://[email or web address]irec and enter Q282 in the Education box to learn more about Swallowed Object in Throat or Esophagus: Care Instructions. Current as of: January 14, 2019 Content Version: 12.3 7237-5895 [employer]. Care instructions adapted under license by your healthcare professional. If you have questions about a medical condition or this instruction, always ask your healthcare professional. [email or web address] disclaims any warranty or liability for your use of this information. documented in this encounter* Patient Instructions* Christiano Veronica CNP - 06/26/2020 5:08 PM EST Go directly to the [facility] for evaluation and treatment. documented in this encounter History of Present Illness * Julio Soriano CNP - 08/07/2019 12:09 PM EST PATIENT NAME: Millie Gomez [facility] [address] [facility] [id number] : 1975 DATE OF VISIT: 08/07/2019 #: [id number] PROVIDER: Julio Soriano CNP Chief Complaint Patient presents with Swallowed Foreign Body this am fells like stuck in chest SUBJECTIVE 44 y.o. female presents Swallowed Foreign Body (this am fells like stuck in chest) Accidentally swallowed a bridge with 3 teeth (bottom 3 back, 28, 29, & 30) at 10:30 (approx 1 hour aand 45 min ago) and now it feels like it is sitting in her chest. Was eating a roll at the timeand must have went into the roll and I swallowed it without even noticing. Tried drinking carbonated soda and not making a difference. When she swallows it feels like it is not going down real quick. Swallowed Foreign Body The incident occurred 1 to 3 hours ago. Suspected object: dental bridge. The foreign body is suspected to be swallowed. The incident was reported. The incident was witnessed/reported by the patient. Associated symptoms include chest pain (described as pressure) and coughing (little not new). Pertinent negatives include no abdominal pain, difficulty breathing, fever, sore throat or trouble swallowing. Congestion: little sick over the last month. There is no history of esophageal disease, mental retardation or a prior foreign body removal. MEDICAL ISSUES Past Medical History: Diagnosis Date Hypertension Vitamin deficiency Patient Active Problem List Diagnosis Hypertension Sleep apnea Onychomycosis SOCIAL HISTORY Social History Socioeconomic History Marital status: Spouse name: Not on file Number of children: Not on file Years of education: Not on file Highest education level: Not on file Occupational History Employer: unemployed Social Needs Financial resource strain: Not on file Food insecurity Worry: Not on file Inability: Not on file Transportation needs Medical: Not on file Non-medical: Not on file Tobacco Use Smoking status: Never Smoker Smokeless tobacco: Never Used Substance and Sexual Activity Alcohol use: Not on file Comment: rare Drug use: No Sexual activity: Not on file Lifestyle Physical activity Days per week: Not on file Minutes per session: Not on file Stress: Not on file Relationships Social connections Talks on phone: Not on file Gets together: Not on file Attends temple service: Not on file Active member of club or organization: Not on file Attends meetings of clubs or organizations: Not on file Relationship status: Not on file Other Topics Concern Not on file Social History Narrative Not on file FAMILY HISTORY Family History Problem Relation Age of Onset Hypertension Father Kidney disease Father Diabetes Father Cancer Maternal Grandmother breast Diabetes Maternal Grandmother Hypertension Paternal Grandfather REVIEW OF SYSTEMS Review of Systems Constitutional: Negative for fever. HENT: Negative for sore throat and trouble swallowing. Congestion: little sick over the last month. Respiratory: Positive for cough (little not new). Cardiovascular: Positive for chest pain (described as pressure). Gastrointestinal: Negative for abdominal pain. MEDICATIONS PRIOR TO VISIT Current Outpatient Medications on File Prior to Visit Medication Sig Dispense Refill lisinopril (PRINIVIL,ZESTRIL) 20 MG tablet Take 20 mg by mouth daily . No current facility-administered medications on file prior to visit. ALLERGIES/INTOLERANCES No Known Allergies OBJECTIVE Vitals: 08/07/19 1159 BP: 125/86 Temp: 97.9 F (36.6 C) Pulse: 72 Resp: 12 SpO2: 96% Body mass index is 37.93 kg/m . 106.6 kg (235 lb) 5' 6 No LMP recorded. Patient has had an implant. The patient is not currently . Physical Exam Constitutional: She is oriented to person, place, and time. She appears well- developed and well-nourished. HENT: Mouth/Throat: Missing lower posterior right teeth. Cardiovascular: Normal rate and regular rhythm. Pulmonary/Chest: Effort normal and breath sounds normal. Neurological: She is alert and oriented to person, place, and time. Skin: Skin is warm and dry. Psychiatric: She has a normal mood and affect. Nursing note and vitals reviewed. PROCEDURE Procedures Results No results found for this or any previous visit (from the past 168 hour(s)). ASSESSMENT/PLAN (expressed as patient instructions): 1. Ingestion of foreign body, initial encounter XR Chest AP/PA and LAT No follow-ups on file. ADDITIONAL CLINICAL COMMENTS There is no foreign body noted in the esophagus on the CXR. Discussed with patient signs to watch for and if any concerns she should get re-evaluated. ORDERS PLACED THIS VISIT Orders Placed This Encounter Procedures XR Chest AP/PA and LAT MEDICATION LIST AT END OF VISIT Current Outpatient Medications Medication Sig Dispense Refill lisinopril (PRINIVIL,ZESTRIL) 20 MG tablet Take 20 mg by mouth daily . No current facility-administered medications for this visit. documented in this encounter* Christiano Veronica CNP - 06/26/2020 5:16 PM EST [facility] Brief Evaluation Form Name: Millie Gomez : 1975 Date: 06/26/20 Time: 5:16 PM Millie Gomez presented to [facility] with There were no encounter diagnoses.. 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 Bleeding freely when wound dressingremoved. Client reports pain 9/10 on pain scale. Allergies: Patient has no known allergies. has a current medication list which includes the following prescription(s): lisinopril. has a past medical history of Hypertension and Vitamin deficiency. OBJECTIVE Client in mild to moderate distress with what appears to be a deep flap laceration to theright index. BP 128/88 (BP Location: Left arm, Patient Position: Sitting, BP Cuff Size: X- large Adult) Pulse 87 Temp 97.6 F (36.4 C) (Temporal) Resp 16 Ht 5' 6 Wt 108.9 kg (240 lb) SpO2 98% BMI 38.74 kg/m Pertinent PE Findings: Large flap laceration right index bleeding profusely. Client in moderate distress with evaluation of the wound with the dressing removed. ASSESSMENT Laceration right index finger Medical Decision Making: Client in moderate distress with pain 9 of 10 and bleeding profusely. Client will be transferred to a higher level of care for evaluation and treatment and pain control. PLAN Pressure dressing to control bleeding. Transfer to the ER. Seen by Christiano Veronica CNP and is being transferred to [facility] via via Private Auto (Other). Transfer Center Contacted: yes Who contacted the Transfer Center: Christiano Veronica CNP *Transfer location subject to change based on patient condition during transport at EMS discretion. documented in this encounter Assessments Diagnosis Ingestion of foreign body, initial encounter Diagnosis Laceration of right index finger without damage to nail, foreign body presence unspecified, initial encounter- Primary Diagnosis Laceration of right index finger without foreign body without damage to nail, initial encounter- Primary Discharge Instructions * Attachments The following attachments cannot be sent through Care Everywhere. * Hand Laceration: Stitches (Bhutanese) documented in this encounter Chief Complaint and Reason for Visit Chief Complaint SCREENING Chief Complaint LIPOMA OF LEFT LEG/T HIGH LIPOMA OF L THIGH SUTURE REMOVAL Reason for Visit Lipoma of left thigh Lipoma of left thigh Lipoma of left thigh Chief Complaint EORDER Additional Source Comments INFORMATION SOURCE (unrecogn ized section and content) DATE CREATED AUTHOR 01/15/2018 [facility] DATE CREATED AUTHOR AUTHOR'S ORGANIZ ATION 06/26/2020 [facility] DATE CREATED AUTHOR AUTHOR'S ORGANIZ ATION 05/28/2023 [facility] DATE CREATED AUTHOR AUTHOR'S ORGANIZ ATION 09/08/2024 [facility] DATE CREATED AUTHOR AUTHOR'S ORGANIZ ATION 09/16/2024 [facility] DATE CREATED AUTHOR AUTHOR'S ORGANIZ ATION 09/16/2024 [facility] DATE CREATED AUTHOR AUTHOR'S ORGANIZ ATION 10/06/2024 [facility] Reason for Visit (unrecogniz ed section and content) Reason Comments Swallowed Foreign Body this am fells lik e stuck in chest Reason Comments Laceration caught right index f travon between 2 pieces of metal and cut finger x 30 min ago Reason Comments Finger Laceration Reason Comments Weight Loss New nsurg Specialty Diagnoses / Procedures Referred By Contnasir t Referred To Contact Bariatrics Diagnoses Obesity, unspecified Procedures eval n treat [facility] [address] [place] [address] Referral ID Status Reason Start Date Expiration Date V isits Requested Visits Authorized [id number] Pending Review 03/21/2023 09/17/2023 1 1 Reason Comments New Patient Kidney cyst Hayley Ghosh RN - 06/26/2020 5:31 PM Vince Luna MD - 06/26/2020 5:28 PM EST ED Notes (unrecognized secti on and content) Presents to the ED c/o right index finger laceration. States up-to-date on tetanus. ED PROVIDER NOTE [facility] EM[facility]GENC[facility] DEPART[facility] NAME: Millie Gomez AGE: 44 y.o. : 1975 VISIT DATE: 06/26/2020 CSN: [id number] PCP: Hasmukh Rousseau MD Chief Complaint Patient presents with Finger Laceration Patient is a 44-year-old female presents to emergency for evaluation of her right index finger laceration. Tetanus immunizations up-to-date. Has no other complaints Past Medical History: Diagnosis Date Hypertension Vitamin deficiency Past Surgical History: Procedure Laterality Date WISDOM TOOTH EXTRACTION Family History Problem Relation Age of Onset Hypertension Father Kidney disease Father Diabetes Father Cancer Maternal Grandmother breast Diabetes Maternal Grandmother Hypertension Paternal Grandfather Social History Socioeconomic History Marital status: Spouse name: Not on file Number of children: Not on file Years of education: Not on file Highest education level: Not on file Occupational History Employer: unemployed Social Needs Financial resource strain: Not on file Food insecurity Worry: Not on file Inability: Not on file Transportation needs Medical: Not on file Non-medical: Not on file Tobacco Use Smoking status: Never Smoker Smokeless tobacco: Never Used Substance and Sexual Activity Alcohol use: Yes Comment: rare Drug use: No Sexual activity: Not on file Lifestyle Physical activity Days per week: Not on file Minutes per session: Not on file Stress: Not on file Relationships Social connections Talks on phone: Not on file Gets together: Not on file Attends temple service: Not on file Active member of club or organization: Not on file Attends meetings of clubs or organizations: Not on file Relationship status: Not on file Other Topics Concern Not on file Social History Narrative Not on file Previous Medications Medication Sig levonorgestreL (MIRENA) 20 mcg/24 hours (6 yrs) 52 mg IUD 1 each by Intrauterine route once . lisinopril (PRINIVIL,ZESTRIL) 20 MG tablet Take 20 mg by mouth daily . No Known Allergies Review of Systems All other systems reviewed and are negative. Patient Vitals for the past 24 hrs: BP SpO2 Height Weight 06/26/20 1800 (!) 126/92 98 % 06/26/20 1745 104/63 97 % 06/26/20 1723 5' 6 108.9 kg (240 lb) Physical Exam Vitals signs and nursing note reviewed. Constitutional: General: She is not in acute distress. Appearance: Normal appearance. She is not ill-appearing, toxic-appearing or diaphoretic. HENT: Head: Normocephalic and atraumatic. Pulmonary: Effort: No respiratory distress. Breath sounds: No stridor. Skin: Comments: Right index finger: There are 2 lacerations over distal aspect of her right index finger. No foreign body noted. Neurovascularly intact. Laceration #1, L-shaped, mental aspect, measures approximately 3 cm. No foreign body noted. Range of motion normal, no obvious tendon laceration noted. Laceration #2: Linear, over dorsal aspect, measures approximately 2 cm, no active bleeding, no foreign body noted. Range of motion normal, neurovascularly intact. Neurological: General: No focal deficit present. Mental Status: She is alert and oriented to person, place, and time. Psychiatric: Mood and Affect: Mood normal. Behavior: Behavior normal. Laboratory & Radiographic Imaging (if done): No results found for this visit on 06/26/20. XR Finger(s) Right 2+ Views Preliminary Result No acute osseous abnormality. Soft tissue trauma. I and love and you/[employer] Workstation ID: [id number] Procedures MDM Number of Diagnoses or Management Options Laceration of right index finger without foreign body without damage to nail, initial encounter Diagnosis management comments: Procedure note: Right index finger lacerations repair. Verbal consent obtained, timeout was performed immediately prior to procedure. Area was prepped and draped in usual sterile fashion using Betadine normal saline. Approximately 3 mL of 1% lidocaine was injected locally. Using 5-0 Ethilon, laceration #1 ; was repaired with 3 simple sutures. Edges were approximated. Hemostasis achieved. Neurovascular bundle intact. Laceration #2 was repaired with 5-0 Ethilon, 2 simple sutures placed. Blood loss minimal, patient tolerated procedure well. X-ray of the finger; no acute osseous findings per radiology. Patient was given referral to follow-up with an orthopedic surgery due to her finger injury. . Clinical Impression: 1. Laceration of right index finger without foreign body without damage to nail, initial encounter ED Disposition ED Disposition Condition Comment Discharge Stable Millie Gomez discharged to home/self care in stable condition. Follow-up Information 1. Hasmukh Rousseau MD. Specialty: Family Medicine Why: Call for an appointment. [address] [place] [phone] 2. Tabatha Guadalupe MD. Specialty: Orthopedic Surgery Why: Call tomorrow for reevaluation. [address] [facility] [address] Contact information for after-discharge care Follow-up information has not been specified. New Prescriptions cephALEXin (KEFLEX) 500 MG capsule Take 1 (one) capsule (500 mg total) by mouth 4 (four) times a day for 7 days . Vince Gonzales MD 06/26/201947 documented in this encounter Goals (unrecognized section and content) Goals may be documented in a n alternate sectionGoals may be documented in an alternate sectionGoals may be documented in an alternate section Care Teams (unrecognized sec tion and content) Team Status: Active Member Role Status Dates Maranda Augustine DO Primary Care Provider Active Team Status: Inactive Member Role Status Dates Maranda Augustine DO Primary Care Provi jesus, Attending Provider, Referring Provider Active Renewals Representative Relationship Specialty Start Date End Date Maranda Augustine DO [address] [facility] [address] [place] [phone] PCP - General Family Medicine 04/17/23 Renewals Representative Relationship Specialty Start Date End Date [facility] Other [address] [place] [address] 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 This clinical summary was aggregated from multiple sources. Caution should be exercised in using it in the provision of clinical care. This summary normalizes information from multiple sources, and as a consequence, information in this document may materially change the coding, format and clinical context of patient data. In addition, data may be omitted in some cases. CLINICAL DECISIONS SHOULD BE BASED ON THE PRIMARY CLINICAL RECORDS. [facility] [employer] ([email or web address]) [facility]. provides no warranty or guarantee of the accuracy or completeness of information in this document.
== END | disposition home or self-care (01) ==
LOC: MTLAB 10:02
PROVIDERS: PCP Nurse Practitioner Family; Referring Provider Nurse Practitioner Family; Visit Provider Nurse Practitioner Family
DX: R74.8 Abnormal levels of other serum enzymes (principal); E55.9 Vitamin D deficiency, unspecified
CPT/HCPCS: 36415; 80076; 82306